=== PATIENT | male | born 1970 | race Caucasian/White ===

== ENCOUNTER 2019-02-15 08:50 | Inpatient (IN) | payer MEDICARE ==
[~2019-02-15] VITALS: Ht 170.2 cm; Wt 112.0 kg
[2019-02-15] VITALS (13 sets, daily range): BP systolic 115–168; BP diastolic 64–106
[~2019-02-15 08:50] MED LIST: ALLO300T PO; ALPR0.5T PO; ALPR1TAB2 PO; ALPR1TAB6 PO; ALPR2TAB5 PO; ARIP2TAB8 PO; ASPI-630 PO; ASPI325T8 PO; ATOR20TA PO; Aspirin PO; CLOP75TA PO; COLC0.6T34 PO; CYAN1TAB19 PO; CYAN500T17 PO; CYCL10TA2 PO; DEPLIN PO; DULO60CA6 PO; ERGO500027 PO; FLUO20CA8 PO; GABA-585 PO; GABA300C18 PO; IMIP50TA3 PO; INSU100V9 SQ; LEVO80CA PO; LIDO700A39 TD; LISI-338 PO; METF500T16 PO; METO25TA4 PO; METO50TA6 PO; MULT-208 PO; NALT1TAB PO; OLME1TAB35 PO; OXYC1TAB7 PO; Oxycodone Hcl/Acetaminophen PO; PANT40GR PO; PIOG1TAB PO; SACU1TAB PO; TRAZ-118 PO; VALS40TA2 PO; VALS80TA3 PO; VIT1CAPS7 PO
[2019-02-15] MEDS ORDERED: HEPARIN for ARTERIAL LINE 1,500 ML ONE (09:09)
[2019-02-15] MEDS ORDERED: LIDOCAINE 1% Multi-Dose 20 ML VIAL. ONE (09:09)
[2019-02-15] MEDS ORDERED: IODIXANOL 320 MG/ML 100 ML VIAL. ONE ×3 (09:09→10:48)
[2019-02-15 09:14] LABS: HEMATOCRIT 49.5 % (39.0-53.0); HEMOGLOBIN 16.6 g/dL (13.0-17.5); RED BLOOD COUNT 5.67 x10^6/uL (4.30-5.70); RED CELL DISTRIBUTION WIDTH 16.7 % (11.5-14.5); WHITE BLOOD COUNT 6.7 x10^3/uL (4.0-11.0)
[2019-02-15] MEDS ORDERED: fentaNYL PF VIAL 100 MCG/2 ML VIAL ONE (09:19)
[2019-02-15] MEDS ORDERED: MIDAZOLAM HCL/PF 2 MG/2 ML VIAL. ONE (09:20)
[2019-02-15] MEDS ORDERED: MULT1TAB52 PO (09:22)
[2019-02-15] MEDS ORDERED: HYDR12.575 PO (09:22)
[2019-02-15] MEDS ORDERED: DESV100T PO (09:22)
[2019-02-15] MEDS ORDERED: ARIP2TAB3 PO (09:22)
[2019-02-15] MEDS ORDERED: SACU1TAB7 PO (09:22)
[2019-02-15 09:24] LABS: CREATININE 1.2 mg/dL (0.7-1.3); GFR 64.4; POTASSIUM 3.8 mmol/L (3.5-5.1)
[2019-02-15 09:28] LABS: PROTHROMBIN TIME PATIENT 12.5 SEC (11.7-14.0)
[2019-02-15] MEDS ORDERED: MIDAZOLAM HCL/PF 2 MG/2 ML VIAL. IV ONE (09:30)
[2019-02-15] MEDS ORDERED: fentaNYL PF VIAL 100 MCG/2 ML VIAL IV ONE (09:30)
[2019-02-15] MEDS ORDERED: IODIXANOL 320 MG/ML 100 ML VIAL. IART ONE (09:30)
[2019-02-15] MEDS ORDERED: LIDOCAINE 1% Multi-Dose 20 ML VIAL. INJ ONE (09:30)
[2019-02-15] MEDS ORDERED: HEPARIN for IV BOLUS 10,000 UNIT/10 ML VIAL. ONE (10:45)
[2019-02-15] MEDS ORDERED: NITROGLYCERIN 200 MCG/2 ML SYRINGE FOR CATH/VASC LAB. IART ONE (11:00)
[2019-02-15] MEDS: HEPARIN for IV BOLUS 10,000 UNIT/10 ML VIAL. IV ONE (11:00)
[2019-02-15] MEDS ORDERED: IV NORMAL SALINE 1000ML BAG 1,000 ML IV ONE (11:00)
--- NOTE | 2019-02-15 12:32 | CARD ---
MR#: [id number] Date of Study: 02/15/2019 Ordering Physician: MICHAEL WHEELER, Referring Physician: MICHAEL WHEELER, Tech: Lori Altman RTR APPROVED REPORT Technologist: Lori Altman RTR Nurse: Michelle Georges RN Procedure(s) performed: Moderate Sedation time:81 MINUTES HISTORY The patient is a 48 year-old male with a history of : diabetes mellitus with treatment, coronary dionne ry disease, hypertension, dyslipidemia. INDICATION The indication(s) include : unstable angina . [facility] Clinical Frailty Scale [facility] Clinical Frailty Scale: Mildly Frail Heart Failure Heart Failure: Yes If Yes, Newly Diagnosed: No If Yes, HF Type: Diastolic If Yes, NYHA Class: Class II PROCEDURE NARRATIVE CLINICAL INFORMATION: 48-year-old male with prior history of five-vessel bypass in 2013 (SULLIVAN to LAD, SVG to OM1, SVG to OM 2, SVG to RCA, radial graft to the ramus), presented to the clinic with unstable angina despite exce llent blood pressure and heart rate control and beta greg therapy. He was then brought to the chemistry lab instructor for further evaluation. INFORMED CONSENT: After explaining the risks and benefits of the procedure and alternatives, informe d consent was obtained. ACCESS: The patient was brought electively to the cardiac catheterization lab in a fasting state. A timeout was performed confirming the patient's name, date of , procedure, and site of procedure. All [facility] personnel were wearing the appropriate protective equipment and radiation monitor devices. ( See nursing notes for medications administered). The right groin was sterilely prepped and draped in the usual fashion. The right groin was infiltrated with 10 mL of 2% lidocaine for subcutaneous anes thesia. A 6 F sheath was inserted into the right femoral artery without difficulty. CORONARY ANGIOGRAPHY: Right and left coronary angiography was performed using a JR4 and JL4 catheter. Left ventricular end diastolic pressure was obtained with a pigtail catheter and pullback was performed after left ventri culography. BYPASS ANGIOGRAPHY: SVG, Radial and SULLIVAN angiography was performed with JR4, MPA and KAYLEY cathters. FINDINGS: HEMODYNAMICS: AO: 120/80 LVEDP 15 mm Hg No gradient on LV to aortic pullback. LEFT VENTRICULOGRAM: EF 55% Anterobasal: Normal. Anterolateral: Normal Apical: Normal Diaphragmatic: Normal Posterobasal: Normal *No significant mitral regurgitation or aortic insufficiency. CORONARY ANGIOGRAPHY: LM is a moderate to large caliber vessel with normal angiographic appearance. LAD is a moderate caliber vessel with a proximal 80% stenosis. D1 is a small caliber vessel with mild luminal irregularities. LCx is a moderate caliber non-dominant vessel with a mid 100% occlusion. OM1 is a small caliber vessel with a proximal occlusion. OM2 is a moderate sized vessel with a mid occlusion. RCA is a large caliber dominant vessel with a proximal 100% occlusion. RPDA is a small caliber vessel with mild diffuse luminal irregularities. BYPASS ANGIOGRAPHY: SULLIVAN to LAD - widely patent without anastomotic stenosis. SVG to RCA - widely patent without anastomotic stenosis. SVG to OM1 - occluded, not seen on angiogram today and in 2016 SVG to OM2 - distal 80% anastomotic stenosis. Radial to ramus - widely patent without anastomotic stenosis. INTERVENTIONAL TECHNIQUE: Based upon the patient's present symptoms of unstable angina with exertion and review of prior angiog bayron where the saphenous vein graft to second obtuse marginal has had progressive disease with risk fo r occlusion and intervention was then performed. Heparin was used for an to regulation. The patient w as previously on aspirin and Plavix. Through a JR4 guide catheter a pro-water wire was advanced to th e distal second obtuse marginal. Next balloon angioplasty was performed with a 2.5 x 15 mm balloon an d subsequently the lesion was stented with a 3.0 x 26 mm resolute drug-eluting stent. Due to signific ant vein graft and port lions vessel mismatch the proximal half of the stent was then postdilated with a 4.5 mm noncompliant balloon at 22 chalino. Intracoronary nitroglycerin was administered. Final angiograph y demonstrated DILSHAD 3 flow. All catheter exchanges and advancements were performed over a guidewire. At case completion the righ t femoral sheath was removed and hemostasis was achieved with an Angioseal Device after limited femor al angiography confirmed adequate vessel size and anatomy. There were no acute complications. Syntax Score If Not STEMI or NSTE-ACS, Syntax Score: Intermediate DILSHAD Flow DILSHAD Flow (Pre-Intervention): DILSHAD-3 DILSHAD Flow (Post-Intervention): DILSHAD-3 Conclusion 1. Normal left sided filling pressures. 2. Normal LV systolic function. EF 55% 3. Severe port lions three vessel coronary disease. 4. 4/5 grafts patent 5. Successful PCI of the distal anastomotic stenosis of the SVG to OM2 with implantation of a 3.0/26 ROBERTO, post-dilated in the proximal segment with a 4.5 mm NC balloon at high pressure. Recommendations ASA 81mg daily Ticagrelor 90mg bid x 90 days Start Xarelto 2.5mg bid High dose statin therapy Cardiac rehab referral Signed by : Michael Wheeler, Electronically Approved : 02/15/2019 12:31:39
[2019-02-15] MEDS ORDERED: ATOR40TA59 PO (13:49)
[2019-02-15] MEDS ORDERED: CLOPIDOGREL BISULFATE 75 MG TABLET PO SCH (14:00)
[2019-02-15] MEDS: GABAPENTIN 100 MG CAPSULE. PO SCH (14:00)
[2019-02-15] MEDS ORDERED: ASPIRIN CHEWABLE 81 MG TABLET. PO SCH (14:00)
[2019-02-15] MEDS: MULTIVITAMIN with MINERAL TABLET. PO SCH (15:23)
[2019-02-15] MEDS: hydroCHLOROthiazide 12.5 MG CAPSULE PO SCH (15:23)
[2019-02-15] MEDS: ARIPiprazole 2 MG TABLET PO SCH (15:23)
[2019-02-15] MEDS: DESVENLAFAXINE 25 MG TAB.ER.24H PO SCH (15:24)
[2019-02-15] MEDS ORDERED: LIDOCAINE 2% 100 MG/5 ML SYRINGE. IV PRN (16:15)
[2019-02-15] MEDS ORDERED: ATROPINE 0.5 MG/5 ML DISP.SYRINGE. IV PRN (16:15)
[2019-02-15] MEDS ORDERED: AMIODARONE 150 MG in IV DEXTROSE 5% 100ML 100 ML IV PRN (16:15)
[2019-02-15] MEDS ORDERED: NITROGLYCERIN SUBLINGUAL 0.4 MG BOTTLE OF 25. SL PRN (16:15)
[2019-02-15] MEDS ORDERED: ACETAMINOPHEN 325 MG TABLET. PO PRN (16:15)
[2019-02-15] MEDS ORDERED: 0.9 % SODIUM CHLORIDE 10 ML DISP.SYRIN. IV PRN (16:15)
[2019-02-15] MEDS ORDERED: TICAGRELOR 90 MG TABLET. PO ONE (17:00)
[2019-02-15] MEDS: ALPRAZolam 1 MG TABLET PO SCH (20:12)
[2019-02-15] MEDS: METOPROLOL TART IMMED RELEASE 50 MG TABLET. PO SCH (20:13)
[2019-02-15] MEDS: SACUBITRIL/VALSARTAN 49/51MG TABLET. PO SCH (20:13)
[2019-02-15] MEDS ORDERED: traZODone 50 MG TABLET. PO SCH (21:00)
[2019-02-15] MEDS ORDERED: GABAPENTIN 300 MG CAPSULE. PO SCH (21:00)
--- NOTE | 2019-02-15 23:07 | NUR ---
Dr. Wheeler notified regarding patients BP 147/105, orders received.
[2019-02-15] MEDS ORDERED: hydrALAZINE 20 MG/ML VIAL. IVP PRN (23:30)
[2019-02-16] MEDS: fentaNYL PF VIAL 100 MCG/2 ML VIAL IV PRN ×2 (02:09→10:52)
[2019-02-16 02:14] VITALS: BP 132/78
[2019-02-16 06:15] LABS: CHOLESTEROL/HDL RATIO 9.7
[2019-02-16 07:28] VITALS: BP 120/68
[2019-02-16] MEDS ORDERED: ASPIRIN ENTERIC COATED 81 MG TABLET.DR. PO SCH (08:00)
[2019-02-16] MEDS: ARIPiprazole 2 MG TABLET PO SCH (08:39)
[2019-02-16] MEDS: SACUBITRIL/VALSARTAN 49/51MG TABLET. PO SCH (08:40)
[2019-02-16] MEDS: DESVENLAFAXINE 25 MG TAB.ER.24H PO SCH (08:40)
[2019-02-16] MEDS: GABAPENTIN 100 MG CAPSULE. PO SCH (08:40)
[2019-02-16] MEDS: MULTIVITAMIN with MINERAL TABLET. PO SCH (08:40)
[2019-02-16] MEDS: hydroCHLOROthiazide 12.5 MG CAPSULE PO SCH (08:40)
[2019-02-16] MEDS: ALPRAZolam 1 MG TABLET PO SCH (08:40)
[2019-02-16] MEDS: METOPROLOL TART IMMED RELEASE 50 MG TABLET. PO SCH (08:41)
[2019-02-16] MEDS ORDERED: BUPROPION HCL PO SCH (09:00)
[2019-02-16] MEDS ORDERED: TICAGRELOR 90 MG TABLET. PO SCH (09:00)
[2019-02-16] MEDS ORDERED: NALTREXONE HCL PO SCH (09:00)
[2019-02-16] MEDS ORDERED: RIVAROXABAN 10 MG TABLET. PO SCH (11:00)
[2019-02-16 11:03] VITALS: BP 109/77
[2019-02-16] MEDS ORDERED: METO50TA6 PO (11:56)
[2019-02-16] MEDS ORDERED: RIVA10TA PO (11:56)
[2019-02-16] MEDS ORDERED: ATOR40TA59 PO (11:56)
[2019-02-16] MEDS ORDERED: TICA90TA PO (11:56)
--- NOTE | 2019-02-16 11:59 | DISCH ---
DISCHARGE INSTRUCTIONS Condition on Discharge Condition on Discharge: Stable Activity After Discharge Activity Instructions for Disc: Activity as tolerated Bathing Instructions: No Tub Bath until see Lifting Instructions after Dis: No heavy lifting, Do not lift >10 pounds Exercise Instruction after Dis: Progress as tolerated Weight Bearing Status after Di: As tolerated Diet after Discharge Diet after Discharge: Cardiac, No Added Sugar Diet Texture: Regular Liquid Texture: Thin Liquid Swallowing Supervision: None needed Wound Incision Care Other wound/incision instructi: Keep cath site clean and dry. Checks after Discharge Checks after discharge: Check blood press - daily Contacting the DRPatricia after DC Call your doctor for: Concerns you may have Treatment/Equipment after DC Adaptive Equipment Issued: None KERLINE PIMENTEL APRN Feb 16, 2019 11:59
--- NOTE | 2019-02-19 07:36 | PDOC3 ---
Discharge Summary Visit Information Date of Admission: Feb 15, 2019 Date of Discharge: Feb 16, 2019 Admitting Diagnosis: CAD Final Diagnosis CAD Brief Hospital Course Allergies Allergies Coded Allergies Type Severity Reaction Last Updated Verified No Known Drug Allergies 06/07/14 No Brief Hospital Course Mr. Zhou is a 48 old male, with a history of CAD s/p CABG, who presented to our office with complaints of chest pain while shoveling snow. Due to due comorbidities and symptoms, patient was brought electively for left coronary angiogram for definitive evaluation. Catheterization revealed SULLIVAN to LAD widely patent without anastomotic stenosis, SVG to RCA widely patent without anastomotic stenosis, SVG to OM1 occluded, not seen on angiogram today and in 2016, SVG to OM2 with distal 80% anastomotic stenosis, and radial to ramus widely patent without anastomotic stenosis. Normal left sided filling pressures. Normal LV systolic function with an EF of 55%. Patient underwent successful PCI of the distal anastomotic stenosis of the SVG to OM2 with implantation of a 3.0/26 ROBERTO, post-dilated in the proximal segment with a 4.5 mm NC balloon at high pressure. Patient tolerate procedure well and was monitored overnight without an acute complications. Lungs CTA. Right groin arteriotomy site soft, clean, and dry. No ecchymosis or hematoma present. No significant events noted on telemetry, although patient was mildly bradycardic overnight. Metoprolol was lower to 50mg BID. Patient discharged on DAPT with ASA, Ticagrelor 90mg bid x 90 days, and Xarelto 2.5mg bid x 30 days. Discharge Information Condition at Discharge: Improved Follow Up: Weeks (4) Disposition/Orders: D/C to Home Scheduled Alprazolam (Alprazolam) 1 Mg Tablet, 1 TAB PO BID for anxiety, #60 (Reported) Entered as Reported by: LUCÍA ESCOBAR on 04/21/18 0831 Last Taken: Unknown Dose on 02/15/19 Last Action: Continued on 02/15/191348 by LORENA CASANOVA Aripiprazole (Abilify) 2 Mg Tablet, 2 MG PO DAILY for RX, (Reported) Entered as Reported by: VI VELARDE on 02/15/19 0922 Last Action: Converted on 02/15/191348 by LORENA CASANOVA Aspirin (Aspirin) 81 Mg Tab.chew, 1 TAB PO DAILY, #30 Ref 3 (Reported) Entered as Reported by: LORENA CASANOVA on 08/25/16 1511 Last Taken: Unknown Dose on 02/15/19 Last Action: Continued on 02/15/191348 by LORENA CASANOVA Atorvastatin Calcium (Atorvastatin Calcium) 40 Mg Tablet, 1 TAB PO QHS for lower cholest for 30 Days, #30 Ref 2 Prescribed by: KERLINE PIMENTEL APRN on 02/16/19 1156 Desvenlafaxine Succinate (Pristiq Er) 100 Mg Tab.er.24h, 1 TAB PO DAILY for RX, #30 Ref 2 (Reported) Entered as Reported by: VI VELARDE on 02/15/19921 Last Action: Converted on 02/15/191348 by LORENA CASANOVA Gabapentin (Gabapentin ) 100 Mg Capsule, 100 MG PO DAILY for pain, (Reported) Entered as Reported by: LUCÍA ESCOBAR on 04/21/18 0832 Last Action: Continued on 02/15/191348 by LORENA CASANOVA Gabapentin (Gabapentin ) 300 Mg Capsule, 300 MG PO HS, (Reported) Entered as Reported by: LUCÍA ESCOBAR on 04/21/18 0832 Last Action: Continued on 02/15/191348 by LORENA CASANOVA Hydrochlorothiazide (Hydrochlorothiazide Capsule ) 12.5 Mg Capsule, 12.5 MG PO DAILY for DIURETIC, Ref 0 (Reported) Entered as Reported by: VI VELARDE on 02/15/19921 Last Action: Continued on 02/15/191348 by LORENA CASANOVA Metformin Hcl (Metformin Hcl) 500 Mg Tablet, 500 MG PO BIDWMEALS for ANTI- DIABETIC, Ref 0 (Reported) Entered as Reported by: LUCÍA ESCOBAR on 04/21/1832 Metoprolol Tartrate (Metoprolol Tartrate) 50 Mg Tablet, 1 TAB PO BID for heart, blood pressure for 30 Days, #60 Ref 2 Prescribed by: KERLINE PIMENTEL APRN on 02/16/19 1156 Multivitamin (Multivitamins) 1 Each Tablet, 1 EACH PO DAILY for supplement, ( Reported) Entered as Reported by: VI VELARDE on 02/15/19921 Last Action: Converted on 02/15/191348 by LORENA CASANOVA Naltrexone HCl/Bupropion HCl (Contrave ER 8-90 mg Tablet) 1 Each Tablet.er, 2 EACH PO DAILY for RX, (Reported) Entered as Reported by: ARIELLE HARRIS on 08/21/16 1505 Last Action: Converted on 02/15/191348 by LORENA CASANOVA Rivaroxaban (Xarelto) 10 Mg Tablet, 2.5 MG PO BIDWMEALS for coronary artery disease for 30 Days, #15 Prescribed by: KERLINE PIMENTEL APRN on 02/16/19 1156 Sacubitril/Valsartan (Entresto 49 mg-51 mg Tablet) 1 Each Tablet, 1 EACH PO BID for cardiac, (Reported) Entered as Reported by: VI VELARDE on 02/15/19 0922 Last Taken: Unknown Dose on 02/15/19 Last Action: Converted on 02/15/191348 by LORENA CASANOVA Ticagrelor (Brilinta) 90 Mg Tablet, 90 MG PO BID for coronary artery disease for 30 Days, #60 Ref 2 Prescribed by: KERLINE PIMENTEL APRN on 02/16/19 1156 Trazodone Hcl (Trazodone Hcl) 50 Mg Tablet, 1 TAB PO QHS, #30 Ref 1 (Reported) Entered as Reported by: MAHENDRA ALMANZA on 08/21/16 1218 Last Action: Continued on 02/15/191348 by LORENA CASANOVA Discontinued Medications Clopidogrel Bisulfate (Clopidogrel) 75 Mg Tablet, 1 TAB PO DAILY, #90 Ref 1 ( Reported) Entered as Reported by: LORENA CASANOVA on 08/25/16 1511 Last Action: Continued on 02/15/191348 by LORENA CASANOVA Metoprolol Tartrate (Metoprolol Tartrate) 50 Mg Tablet, 2 TAB PO BID for cardiac , #60 Ref 5 (Reported) Entered as Reported by: ARIELLE HARRIS on 08/21/16 1503 Last Taken: Unknown Dose on 02/15/19 Last Action: Continued on 02/15/191348 by LORENA CASANOVA Patient Instructions Patient Instructions GENERAL INSTRUCTIONS: 1. Your dressing should be removed prior to leaving the hospital. 2. It is OK to shower the day after your procedure. 3. If you received stents, be sure to carry your stent information card with you in your wallet/purse at all times. 4. Call the office immediately at [phone] if you notice any fever or if there is redness, worsening tenderness/pain, increased bruising, or drainage from the puncture site. 5. Should you have bleeding from the site, lie down immediately & put pressure on the site. The pressure should be hard enough to stop the bleeding. Have the nearest person call 911. DO NOT try to drive to the ER with active bleeding. 6. If you notice a change in color, coolness to touch, or loss of feeling in the affected extremity, come to the emergency room. Please have someone drive you or call 911 if no one is available. DO NOT drive yourself. 7. If you normally take glucophage (metformin), please do not take this medicine for 48 hours following your procedure. 8. DO NOT STOP TAKING YOUR PLAVIX OR ASPIRIN UNLESS IT IS CLEARED BY A MEMORIAL DESIGNER OF YOUR ENVIRONMENTAL MAINTENANCE WORKER AT OUR OFFICE. 9. QUIT SMOKING: the [place] [employer], [place] [employer], & [place] [employer] have cessation resources available on their websites 10. Please have someone available to drive you home from the hospital as you may be limited by sedation medications given during the procedure. Femoral (Groin) access: 1. Do no lifting, pushing, pulling, bending, stooping, or recurrent stair climbing for 3 days following your procedure. 2. Once past the first 3 days, do not do any HEAVY exertion or lifting for one week following the procedure. No gym workouts, running, lifting greater than a gallon of milk, etc 3. Do not submerge in bath or pool for one week. OK to drive 3 days following your procedure, but if going long distance, do not go alone & take hourly breaks to get out of car and walk around. Radial Artery (Wrist) access: 1. No pushing, pulling, lifting, typing, or anything that requires repetitive use/movement of the affected wrist for 3 days following your procedure. 2. OK to drive the day following your procedure. (This is because of effects of sedating medications.) Call the office at [phone] for any questions or concerns. KERLINE PIMENTEL APRN Feb 19, 2019 07:36
== END 2019-02-16 13:00 | disposition home or self-care (01) | DRG 247 ==
LOC: CCL 08:50 → 2 SOUTH 10:45
PROVIDERS: ADMIT Internal Medicine Cardiovascular Disease; ATTEND Internal Medicine Cardiovascular Disease
PROC: 027034Z Dilation of Coronary Artery, One Artery with Drug-eluting Intraluminal Device, Percutaneous Approach (ICD-10-PCS; principal; 2019-02-15)
PROC: 4A023N7 Measurement of Cardiac Sampling and Pressure, Left Heart, Percutaneous Approach (ICD-10-PCS; 2019-02-15)
PROC: B2111ZZ Fluoroscopy of Multiple Coronary Arteries using Low Osmolar Contrast (ICD-10-PCS; 2019-02-15)
PROC: B2151ZZ Fluoroscopy of Left Heart using Low Osmolar Contrast (ICD-10-PCS; 2019-02-15)
PROC: B2131ZZ Fluoroscopy of Multiple Coronary Artery Bypass Grafts using Low Osmolar Contrast (ICD-10-PCS; 2019-02-15)
PROC: B2181ZZ Fluoroscopy of Left Internal Mammary Bypass Graft using Low Osmolar Contrast (ICD-10-PCS; 2019-02-15)
PROC: B41F1ZZ Fluoroscopy of Right Lower Extremity Arteries using Low Osmolar Contrast (ICD-10-PCS; 2019-02-15)
DX: T82.858A Stenosis of other vascular prosthetic devices, implants and grafts, initial encounter (principal); I25.110 Atherosclerotic heart disease of native coronary artery with unstable angina pectoris; E11.9 Type 2 diabetes mellitus without complications; I10 Essential (primary) hypertension; E78.5 Hyperlipidemia, unspecified; Y83.8 Other surgical procedures as the cause of abnormal reaction of the patient, or of later complication, without mention of misadventure at the time of the procedure; Y92.89 Other specified places as the place of occurrence of the external cause; Z95.1 Presence of aortocoronary bypass graft; I25.5 Ischemic cardiomyopathy
CPT/HCPCS: 36415; 80048; 80061; 85027; 85347; 85610; 90471; 90756; 92938; 93459; 93567; 99152; 99153; C1725; C1760; C1769; C1874; C1887; C1892; G0269; J1644; J2250; J3010; J3490; J7030; Q9967; C1771; Q2035

== ENCOUNTER 2019-04-28 14:00 | Emergency (ER) | payer MEDICARE ==
[~2019-04-28] VITALS: Ht 172.7 cm; Wt 108.9 kg
[~2019-04-28 14:00] MED LIST changes: +ARIP2TAB3 PO; +ATOR40TA59 PO; +DESV100T PO; +HYDR12.575 PO; +MULT1TAB52 PO; +RIVA10TA PO; +SACU1TAB7 PO; +TICA90TA PO
--- NOTE | 2019-04-28 14:53 | RAD ---
CT HEAD INDICATION: Numbness COMPARISON: None Available. Exposure: One or more of the following individualized dose reduction techniques were utilized for this examination: 1. Automated exposure control 2. Adjustment of the mA and/or kV according to patient size 3. Use of iterative reconstruction technique TECHNIQUE: 5 mm contiguous axial images were obtained from the skull base to the vertex in both bone and soft tissue algorithm. FINDINGS: Mild bilateral periventricular white matter hypodensities likely chronic small vessel ischemic disease. No evidence of acute intracranial hemorrhage. No extra-axial fluid collections. No mass effect or midline shift. Ventricular size is appropriate. Basal cisterns are patent. No fractures identified.Herron-white differentiation is preserved.Globes and orbits are within normal limits. Paranasal sinuses and mastoid air cells are clear. IMPRESSION: No acute intracranial findings. Electronically signed by: Nabeel Martin MD (04/28/2019 2:50 PM) [facility]
--- NOTE | 2019-04-28 14:58 | RAD ---
Chest, PA and Lateral: Technique: PA and lateral views of the chest were obtained. History: Shortness of breath. Comparison: 04/21/2018. Findings: Low lung volumes and technique accentuates heart size and pulmonary vascularity. Mild bibasilar lung airspace opacity likely atelectasis or infiltrates. Moderate degenerative changes thoracic spine. IMPRESSION: Mild bibasilar lung airspace opacities likely atelectasis or infiltrates. Electronically signed by: Nabeel Martin MD (04/28/2019 2:55 PM) [facility]
[2019-04-28 15:02] LABS: BASO % 1 % (0-3); EOS # 0.1 x10^3/uL (0.0-0.7); EOS % 2 % (0-3); HEMATOCRIT 50.8 % (39.0-53.0); HEMOGLOBIN 17.4 g/dL (13.0-17.5); LYMPH # 2.6 x10^3/uL (1.0-4.8); LYMPH % 30 % (24-48); MEAN CORPUSCULAR HEMOGLOBIN 30 pg (25-35); MEAN CORPUSCULAR HGB CONC 34 g/dL (31-37); MEAN CORPUSCULAR VOLUME 88 fL (79-100); MONO # 0.6 x10^3/uL (0.0-1.1); MONO % 7 % (0-9); NEUT # 5.4 x10^3uL (1.8-7.7); NEUT % 62 % (31-73); PLATELET COUNT 244 x10^3/uL (140-400); RED BLOOD COUNT 5.76 x10^6/uL (4.30-5.70); RED CELL DISTRIBUTION WIDTH 16.3 % (11.5-14.5); WHITE BLOOD COUNT 8.8 x10^3/uL (4.0-11.0)
[2019-04-28 15:11] LABS: PROTHROMBIN TIME PATIENT 13.2 SEC (11.7-14.0)
[2019-04-28 15:17] LABS: CALCIUM 9.4 mg/dL (8.5-10.1); CREATININE 1.4 mg/dL (0.7-1.3); GFR 53.9; POTASSIUM 3.6 mmol/L (3.5-5.1)
[2019-04-28 15:21] LABS: ALBUMIN/GLOBULIN RATIO 1.1 (1.0-1.7); MAGNESIUM 1.8 mg/dL (1.8-2.4); TOTAL BILIRUBIN 0.6 mg/dL (0.2-1.0); TOTAL PROTEIN 7.5 g/dL (6.4-8.2)
--- NOTE | 2019-04-28 15:25 | PHYS DOC ---
Past Medical History Past Medical History: Anxiety, CAD, Depression, Diabetes-Type II, GERD, High Cholesterol, Hypertension, [place] Past Surgical History: Cholecystectomy, Coronary Bypass Surgery, Knee Replacement Alcohol Use: Occasionally Drug Use: None Adult General Chief Complaint Chief Complaint: SHORTNESS OF BREATH [facility] HPI Patient is a 48 year old male who presents with complaining of intermittent episodes of chest pain and generalized numbness. Patient states he had stent placement month and half ago and since then has episodes of shortness of breath not related to activity or position that last for a few seconds and happens several times a day. Patient states his clinical program director is aware of the problem that is related to his body adjustment of the cardiac condition. Patient also complaining of generalized numbness from head to toe in bilateral upper and lower extremity and face and trunk for the last 2 days as a constant problem without focal weakness. Patient complaining of mild headache without blurred or double vision, nausea and vomiting, fever and chills, chest pain. Patient complaining of retro-orbital headache and rated his pain 5/10. Patient states he had episode of numbness for a short time previously but for the last 2 days his numbness is constant. Patient states he has strong history of anxiety. Review of Systems Review of Systems Constitutional: Denies fever or chills [] Eyes: Denies change in visual acuity, redness, or eye pain [] HENT: Denies nasal congestion or sore throat [] Respiratory: Denies cough, reports shortness of breath [] Cardiovascular: No additional information not addressed in HPI [] GI: Denies abdominal pain, nausea, vomiting, bloody stools or diarrhea [] : Denies dysuria or hematuria [] Musculoskeletal: Denies back pain or joint pain [] Integument: Denies rash or skin lesions [] Neurologic: Denies headache, focal weakness, reports sensory changes [] Endocrine: Denies polyuria or polydipsia [] All other systems were reviewed and found to be within normal limits, except as documented in this note. Current Medications Current Medications Current Medications Medications (Trade) Dose Ordered Sig/Omar Start Time Stop Time Status Last Admin Dose Admin Lorazepam (Ativan Inj) 1 mg 1X ONCE 04/28/19 15:00 04/28/19 15:01 DC 04/28/19 15:05 1 MG Allergies Allergies Allergies Coded Allergies Type Severity Reaction Last Updated Verified No Known Drug Allergies 06/07/14 No Physical Exam Physical Exam Constitutional: Well developed, well nourished, mild distress, non-toxic appearance. [] HENT: Normocephalic, atraumatic. Eyes: PERRLA, EOMI, conjunctiva normal, no discharge. [] Neck: Normal range of motion, no tenderness, supple, no stridor. [] Cardiovascular:Heart rate regular rhythm, no murmur [] Lungs & Thorax: Bilateral breath sounds clear to auscultation [] Abdomen: Bowel sounds normal, soft, no tenderness, no masses, no pulsatile masses. [] Skin: Warm, dry, no erythema, no rash. [] Back: No tenderness, no CVA tenderness. [] Extremities: No tenderness, no cyanosis, no clubbing, ROM intact, no edema. [] Neurologic: Alert and oriented X 3, normal motor function, normal sensory function without paresthesia, no focal deficits noted. [] Psychologic: Affect anxious, judgement normal, mood normal. [] Current Patient Data Vital Signs Vital Signs Date Time Temp Pulse Resp B/P (MAP) Pulse Ox O2 Delivery O2 Flow Rate FiO2 04/28/19 14:05 98.0 79 20 145/96 (112) 98 Room Air 98.0 Lab Values Laboratory Tests Test 04/28/19 14:25 White Blood Count 8.8 x10^3/uL (4.0-11.0) Red Blood Count 5.76 x10^6/uL (4.30-5.70) H Hemoglobin 17.4 g/dL (13.0-17.5) Hematocrit 50.8 % (39.0-53.0) Mean Corpuscular Volume 88 fL (79-100) Mean Corpuscular Hemoglobin 30 pg (25-35) Mean Corpuscular Hemoglobin Concent 34 g/dL (31-37) Red Cell Distribution Width 16.3 % (11.5-14.5) H Platelet Count 244 x10^3/uL (140-400) Neutrophils (%) (Auto) 62 % (31-73) Lymphocytes (%) (Auto) 30 % (24-48) Monocytes (%) (Auto) 7 % (0-9) Eosinophils (%) (Auto) 2 % (0-3) Basophils (%) (Auto) 1 % (0-3) Neutrophils # (Auto) 5.4 x10^3uL (1.8-7.7) Lymphocytes # (Auto) 2.6 x10^3/uL (1.0-4.8) Monocytes # (Auto) 0.6 x10^3/uL (0.0-1.1) Eosinophils # (Auto) 0.1 x10^3/uL (0.0-0.7) Basophils # (Auto) 0.0 x10^3/uL (0.0-0.2) Prothrombin Time 13.2 SEC (11.7-14.0) Prothrombin Time INR 1.0 (0.8-1.1) Sodium Level 138 mmol/L (136-145) Potassium Level 3.6 mmol/L (3.5-5.1) Chloride Level 99 mmol/L (98-107) Carbon Dioxide Level 28 mmol/L (21-32) Anion Gap 11 (6-14) Blood Urea Nitrogen 16 mg/dL (8-26) Creatinine 1.4 mg/dL (0.7-1.3) H Estimated GFR (Cockcroft-Gault) 53.9 BUN/Creatinine Ratio 11 (6-20) Glucose Level 302 mg/dL (70-99) H Calcium Level 9.4 mg/dL (8.5-10.1) Magnesium Level 1.8 mg/dL (1.8-2.4) Total Bilirubin 0.6 mg/dL (0.2-1.0) Aspartate Amino Transferase (AST) 26 U/L (15-37) Alanine Aminotransferase (ALT) 50 U/L (16-63) Alkaline Phosphatase 99 U/L (46-116) Creatine Kinase 153 U/L (39-308) Troponin I Quantitative < 0.017 ng/mL (0.000-0.055) PF-Zly-E-Type Natriuretic Peptide 137 pg/mL (0-124) H Total Protein 7.5 g/dL (6.4-8.2) Albumin 4.0 g/dL (3.4-5.0) Albumin/Globulin Ratio 1.1 (1.0-1.7) Laboratory Tests 04/28/19 14:25 Laboratory Tests 04/28/19 14:25 EKG EKG EKG interpreted by me. EKG at 1412 showed normal sinus rhythm at rate of 61, incomplete right bundle-branch block, normal. RN QT intervals, poor R-wave progress in anteroseptal leads. Radiology/Procedures Radiology/Procedures [facility] [address] [place] [address] IMAGING REPORT Signed PATIENT: KAMRON HARDY ACCOUNT: [id number] : 1970 LOCATION: ER AGE: 48 SEX: M EXAM STATUS: PRE ER ORD. PHYSICIAN: SARINA PATEL MD REASON: numbness PROCEDURE: CT HEAD WO CONTRAST CT HEAD INDICATION: Numbness COMPARISON: None Available. Exposure: One or more of the following individualized dose reduction techniques were utilized for this examination: 1. Automated exposure control 2. Adjustment of the mA and/or kV according to patient size 3. Use of iterative reconstruction technique TECHNIQUE: 5 mm contiguous axial images were obtained from the skull base to the vertex in both bone and soft tissue algorithm. FINDINGS: Mild bilateral periventricular white matter hypodensities likely chronic small vessel ischemic disease. No evidence of acute intracranial hemorrhage. No extra-axial fluid collections. No mass effect or midline shift. Ventricular size is appropriate. Basal cisterns are patent. No fractures identified.Herron-white differentiation is preserved.Globes and orbits are within normal limits. Paranasal sinuses and mastoid air cells are clear. IMPRESSION: No acute intracranial findings. Electronically signed by: Nabeel Martin MD (04/28/2019 2:50 PM) [facility] [address] [place] [address] IMAGING REPORT Signed PATIENT: KAMRON HARDY ACCOUNT: [id number] : 1970 LOCATION: ER AGE: 48 SEX: M EXAM STATUS: PRE ER ORD. PHYSICIAN: SARINA PATEL MD REASON: shortness of breath PROCEDURE: CHEST PA & LATERAL Chest, PA and Lateral: Technique: PA and lateral views of the chest were obtained. History: Shortness of breath. Comparison: 04/21/2018. Findings: Low lung volumes and technique accentuates heart size and pulmonary vascularity. Mild bibasilar lung airspace opacity likely atelectasis or infiltrates. Moderate degenerative changes thoracic spine. IMPRESSION: Mild bibasilar lung airspace opacities likely atelectasis or infiltrates. Electronically signed by: Nabeel Martin MD (04/28/2019 2:55 PM) [facility] DICTATED and SIGNED BY: NABEEL MARTIN MD DATE: 04/28/19 7260 Course & Med Decision Making Course & Med Decision Making Pertinent Labs and Imaging studies reviewed. (See chart for details) Evaluation of patient in ER showed 48-year-old male patient with multiple medical problems presented with generalized numbness and intermittent episodes of shortness of breath. Patient was anxious in ER and had NIHSS of 0. Labs was unremarkable except for hyperglycemia and mild elevation of creatinine. CT head and chest x-ray did not show acute finding. Patient felt better. Plan discharge patient home to diagnose of and uncontrolled diabetes mellitus and instruction to follow up with her primary care physician and clinical program director. Dragon Disclaimer Dragon Disclaimer This electronic medical record was generated, in whole or in part, using a voice recognition dictation system. Departure Departure Impression: Primary Impression: Panic attack Additional Impressions: Hyperglycemia Shortness of breath Uncontrolled diabetes mellitus Renal insufficiency Disposition: HOME, SELF-CARE (at 1559) Condition: IMPROVED Referrals: JUSTINO GARCIA MD (PCP) Patient Instructions: 1800 Calorie Diet for Diabetes Meal Planning, Anxiety and Panic Attacks, Diabetes Meal Planning Guide, Hyperglycemia, Shortness of Breath Additional Instructions: Continue home medications Follow-up with your primary care physician in 3-5 days Return to ER if not getting better Problem Qualifiers Additional Impressions: Uncontrolled diabetes mellitus Diabetes mellitus type: other specified (including AIXA) Glycemic state: with hyperglycemia Qualified Codes: E13.65 - Other specified diabetes mellitus with hyperglycemia SARINA PATEL MD Apr 28, 2019 15:25
[2019-04-28 16:22] VITALS: BP 143/72
--- NOTE | 2019-04-29 11:28 | EKG ---
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
== END 2019-04-28 16:29 | disposition home or self-care (01) ==
LOC: ER 14:00
DX: F41.0 Panic disorder [episodic paroxysmal anxiety] (principal); E11.65 Type 2 diabetes mellitus with hyperglycemia; R06.02 Shortness of breath; N28.9 Disorder of kidney and ureter, unspecified; F32.9 Major depressive disorder, single episode, unspecified; E78.00 Pure hypercholesterolemia, unspecified; K21.9 Gastro-esophageal reflux disease without esophagitis; I10 Essential (primary) hypertension; I25.2 Old myocardial infarction; Z90.49 Acquired absence of other specified parts of digestive tract; Z95.1 Presence of aortocoronary bypass graft
CPT/HCPCS: 36415; 70450; 71046; 80053; 82550; 83735; 83880; 84484; 85025; 85610; 93005; 96374; 99285; J2060

== ENCOUNTER 2019-08-07 08:41 | Inpatient (IN) | payer MEDICARE, OTHER ==
[~2019-08-07] VITALS: Ht 170.2 cm; Wt 118.1 kg
[~2019-08-07 08:41] MED LIST changes: +LIDO700A21 TD; -LIDO700A39 TD; -PIOG1TAB PO; +PIOG1TAB7 PO
[2019-08-07 09:11] LABS: BASO # 0.1 x10^3/uL (0.0-0.2); BASO % 2 % (0-3); EOS # 0.3 x10^3/uL (0.0-0.7); EOS % 4 % (0-3); HEMATOCRIT 47.2 % (39.0-53.0); HEMOGLOBIN 16.2 g/dL (13.0-17.5); LYMPH # 2.4 x10^3/uL (1.0-4.8); LYMPH % 36 % (24-48); MEAN CORPUSCULAR HEMOGLOBIN 30 pg (25-35); MEAN CORPUSCULAR HGB CONC 34 g/dL (31-37); MEAN CORPUSCULAR VOLUME 88 fL (79-100); MONO # 0.3 x10^3/uL (0.0-1.1); MONO % 5 % (0-9); NEUT # 3.6 x10^3/uL (1.8-7.7); NEUT % 54 % (31-73); PLATELET COUNT 205 x10^3/uL (140-400); RED BLOOD COUNT 5.39 x10^6/uL (4.30-5.70); RED CELL DISTRIBUTION WIDTH 14.7 % (11.5-14.5); WHITE BLOOD COUNT 6.6 x10^3/uL (4.0-11.0)
--- NOTE | 2019-08-07 09:22 | PHYS DOC ---
Past Medical History Past Medical History: Anxiety, CAD, Depression, Diabetes-Type II, GERD, High Cholesterol, Hypertension, [place] Past Surgical History: Cholecystectomy, Coronary Bypass Surgery, Knee Replacement Additional Past Surgical Histo: STENT PLACEMENT Alcohol Use: Occasionally Drug Use: None Adult General Chief Complaint Chief Complaint: CHEST PAIN HPI HPI Patient is a 48 year old male who presents with at 0030 and having life sided chest pressure with pain that went into the left shoulder down to the left wrist and states this feels like a throbbing pounding feeling. Patient states he has slight shortness of air with this. Patient currently rates his pain 7 out of 10. Review of Systems Review of Systems Constitutional: Denies fever or chills [] Respiratory: Denies cough. shortness of breath [] Cardiovascular: Left chest pressure with radiation to left shoulder down to left wrist All other systems were reviewed and found to be within normal limits, except as documented in this note. Current Medications Current Medications Current Medications Medications (Trade) Dose Ordered Sig/Omar Start Time Stop Time Status Last Admin Dose Admin Aspirin (Brenda Aspirin) 325 mg 1X ONCE 08/07/19 09:45 08/07/19 09:46 DC 08/07/19 09:53 325 MG Nitroglycerin (Nitrostat) 0.4 mg PRN Q5MIN PRN 08/07/19 09:30 Allergies Allergies Allergies Coded Allergies Type Severity Reaction Last Updated Verified No Known Drug Allergies 06/07/14 No Physical Exam Physical Exam Constitutional: Well developed, well nourished, no acute distress, non-toxic appearance. [] Eyes: PERRLA, EOMI, conjunctiva normal, no discharge. [] Cardiovascular: Sinus rhythm with pronounced lateral T wave inversion . Heart rate regular rhythm, no murmur [] Lungs & Thorax: Bilateral breath sounds clear to auscultation [] Skin: Warm, dry, no erythema, no rash. [] Back: No tenderness, no CVA tenderness. [] Extremities: No tenderness, no cyanosis, no clubbing, ROM intact, no edema. [] Neurologic: Alert and oriented X 3, normal motor function, normal sensory funct ion, no focal deficits noted. [] Psychologic: Affect normal, judgement normal, mood normal. [] Current Patient Data Vital Signs Vital Signs Date Time Temp Pulse Resp B/P (MAP) Pulse Ox O2 Delivery O2 Flow Rate FiO2 08/07/19 08:45 97.6 83 16 121/76 (91) 94 Room Air 97.6 Lab Values Laboratory Tests Test 08/07/19 09:00 White Blood Count 6.6 x10^3/uL (4.0-11.0) Red Blood Count 5.39 x10^6/uL (4.30-5.70) Hemoglobin 16.2 g/dL (13.0-17.5) Hematocrit 47.2 % (39.0-53.0) Mean Corpuscular Volume 88 fL (79-100) Mean Corpuscular Hemoglobin 30 pg (25-35) Mean Corpuscular Hemoglobin Concent 34 g/dL (31-37) Red Cell Distribution Width 14.7 % (11.5-14.5) H Platelet Count 205 x10^3/uL (140-400) Neutrophils (%) (Auto) 54 % (31-73) Lymphocytes (%) (Auto) 36 % (24-48) Monocytes (%) (Auto) 5 % (0-9) Eosinophils (%) (Auto) 4 % (0-3) H Basophils (%) (Auto) 2 % (0-3) Neutrophils # (Auto) 3.6 x10^3/uL (1.8-7.7) Lymphocytes # (Auto) 2.4 x10^3/uL (1.0-4.8) Monocytes # (Auto) 0.3 x10^3/uL (0.0-1.1) Eosinophils # (Auto) 0.3 x10^3/uL (0.0-0.7) Basophils # (Auto) 0.1 x10^3/uL (0.0-0.2) Sodium Level 136 mmol/L (136-145) Potassium Level 3.7 mmol/L (3.5-5.1) Chloride Level 97 mmol/L (98-107) L Carbon Dioxide Level 27 mmol/L (21-32) Anion Gap 12 (6-14) Blood Urea Nitrogen 17 mg/dL (8-26) Creatinine 1.4 mg/dL (0.7-1.3) H Estimated GFR (Cockcroft-Gault) 53.9 BUN/Creatinine Ratio 12 (6-20) Glucose Level 392 mg/dL (70-99) H Calcium Level 9.4 mg/dL (8.5-10.1) Total Bilirubin 0.5 mg/dL (0.2-1.0) Aspartate Amino Transferase (AST) 20 U/L (15-37) Alanine Aminotransferase (ALT) 35 U/L (16-63) Alkaline Phosphatase 104 U/L (46-116) Troponin I Quantitative < 0.017 ng/mL (0.000-0.055) Total Protein 7.5 g/dL (6.4-8.2) Albumin 3.5 g/dL (3.4-5.0) Albumin/Globulin Ratio 0.9 (1.0-1.7) L Laboratory Tests 08/07/19 09:00 Laboratory Tests 08/07/19 09:00 EKG EKG Sinus Rhythm, Pronounced T wave inversion, no STEMI[] Interpretation Time: [address] Villeda Radiology/Procedures Radiology/Procedures [] Impressions: [facility] [address] [place], [place] [id number] IMAGING REPORT Signed PATIENT: KAMRON HARDY ACCOUNT: [id number] : 1970 LOCATION: ER AGE: 48 SEX: M EXAM STATUS: REG ER ORD. PHYSICIAN: RAFAEL WILL APRN REASON: chest pain PROCEDURE: CHEST PA & LATERAL CHEST PA LATERAL History: Chest pain Comparison: April 28, 2019 Findings: No consolidation or pleural effusion. Borderline enlarged heart size. Prior median sternotomy. Impression: 1. No acute cardiopulmonary process. Electronically signed by: Ernst Michael DO (08/07/2019 9:31 AM) [facility] DICTATED and SIGNED BY: ERNST MICHAEL DO DATE: 08/07/19930 Course & Med Decision Making Course & Med Decision Making Patient is a 48 year old male who presents with at 0030 and having life sided chest pressure with pain that went into the left shoulder down to the left wrist and states this feels like a throbbing pounding feeling. Patient states he has slight shortness of air with this. Patient currently rates his pain 7 out of 10. Vital signs within normal limits. Patient states he took an 81 mg aspirin this morning. Patient states he did not eat anything that he took a drink of water 8 :00 this morning. Lungs are clear to all station all lobes. Vital signs are within normal limits. Skin is pink warm and dry. No extremity edema. EKG shows sinus rhythm with pronounced lateral T wave inversion. Skin is pink warm and dry. PERRLA. Patient denies headache, nausea, vomiting or diarrhea, fevers, dizziness, numbness or tingling, weaknesses, visual changes. Patient has a history of 6 coronary bypasses stent placed back in March. Patient also has hypertension, diabetes, cholecystectomy and obesity. Patient states he does not smoke. Patient states he sees Dr. Wheeler for cardiology and primary care is Dr. Rios. Patient is aware that he will be admitted. Troponin is negative and chest x-ray shows no acute findings. Patient admitted by hospitalist. Dragon Disclaimer Dragon Disclaimer This electronic medical record was generated, in whole or in part, using a voice recognition dictation system. The HEART Score for CP Pts HEART Score for Chest Pain: HEART Score for Chest Pain Response (Comments) Value History Moderately Suspicious 1 ECG Nonspecific Repolarizatio 1 Age >45 - < 65 1 Risk Factors >3 Risk Factors or Hx CAD 2 Troponin < Normal Limit 0 Total 5 Risk Factors: Risk Factors: DM, Current or recent (<one month) smoker, HTN, HLP, family his tory of CAD, obesity. Risk Scores: Score 0 - 3: 2.5% MACE over next 6 weeks - Discharge Home Score 4 - 6: 20.3% MACE over next 6 weeks - Admit for Clinical Observation Score 7 - 10: 72.7% MACE over next 6 weeks - Early Invasive Strategies Departure Departure Impression: Primary Impression: Chest pain Disposition: ADMITTED INPATIENT Admitting Physician: TOBIAS Condition: STABLE Referrals: JUSTINO RIOS MD (PCP) Problem Qualifiers Primary Impression: Chest pain Chest pain type: unspecified Qualified Codes: R07.9 - Chest pain, unspecified RAFAEL WILL RETANNER Aug 07, 2019 09:22
[2019-08-07 09:28] LABS: CALCIUM 9.4 mg/dL (8.5-10.1); CREATININE 1.4 mg/dL (0.7-1.3); GFR 53.9; POTASSIUM 3.7 mmol/L (3.5-5.1)
[2019-08-07 09:33] LABS: ALBUMIN 3.5 g/dL (3.4-5.0); ALBUMIN/GLOBULIN RATIO 0.9 (1.0-1.7); TOTAL BILIRUBIN 0.5 mg/dL (0.2-1.0); TOTAL PROTEIN 7.5 g/dL (6.4-8.2)
--- NOTE | 2019-08-07 09:34 | RAD ---
CHEST PA LATERAL History: Chest pain Comparison: April 28, 2019 Findings: No consolidation or pleural effusion. Borderline enlarged heart size. Prior median sternotomy. Impression: 1. No acute cardiopulmonary process. Electronically signed by: Ernst Michael DO (08/07/2019 9:31 AM) [facility]
[2019-08-07] MEDS ORDERED: ASPIRIN 325 MG TABLET PO ONE (09:45)
[2019-08-07] MEDS ORDERED: IV NORMAL SALINE 1000ML BAG 1,000 ML IV ONE (10:15)
[2019-08-07] MEDS ORDERED: ACETAMINOPHEN 325 MG TABLET. PO PRN (11:00)
[2019-08-07] MEDS ORDERED: NITROGLYCERIN SUBLINGUAL 0.4 MG BOTTLE OF 25. SL PRN (11:00)
[2019-08-07] MEDS ORDERED: fentaNYL PF VIAL 100 MCG/2 ML VIAL IV PRN (11:00)
[2019-08-07] MEDS ORDERED: ONDANSETRON PF 4 MG/2 ML VIAL. IV PRN (11:00)
--- NOTE | 2019-08-07 11:08 | EKG ---
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
[2019-08-07] MEDS: NITROGLYCERIN SUBLINGUAL 0.4 MG BOTTLE OF 25. SL PRN ×2 (11:32→11:40)
--- NOTE | 2019-08-07 11:56 | HP ---
ADMIT DATE: 08/07/2019 CHIEF COMPLAINT: Chest pain. HISTORY OF PRESENT ILLNESS: The patient is a pleasant 48-year-old male who has known coronary artery disease, in fact he has had 5-vessel bypass and a stent. Basically, he has got throbbing chest pain, feels like it is as hard. I discussed the case with ER physician. We are going to admit the patient and consult Cardiology. PAST MEDICAL HISTORY: CAD, anxiety, depression, coronary artery bypass surgery, cardiac stents, hyperlipidemia, GERD, hypertension, myocardial infarction, cholecystectomy, knee replacement. ALLERGIES: None. FAMILY HISTORY: Coronary artery disease. SOCIAL HISTORY: He does not drink, smoke or take drugs. He is on disability. He is . MEDICATIONS: Reviewed, please refer to the MRAD. REVIEW OF SYSTEMS: GENERAL: No history of weight change, weakness or fevers. SKIN: No bruising, hair changes or rashes. EYES: No blurred, double or loss of vision. NOSE AND THROAT: No history of nosebleeds, hoarseness or sore throat. HEART: No history of palpitations, or shortness of breath on exertion. He complains of chest pain. LUNGS: Denies cough, hemoptysis, wheezing or shortness of breath. GASTROINTESTINAL: Denies changes in appetite, nausea, vomiting, diarrhea or constipation. GENITOURINARY: No history of frequency, urgency, hesitancy or nocturia. NEUROLOGIC: Denies history of numbness, tingling, tremor or weakness. PSYCHIATRIC: No history of panic, anxiety or depression. ENDOCRINE: No history of heat or cold intolerance, polyuria or polydipsia. EXTREMITIES: Denies muscle weakness, joint pain, pain on walking or stiffness. PHYSICAL EXAMINATION: VITALS: Within normal limits and are stable. GENERAL: No apparent distress. Alert and oriented. HEENT: Head is normocephalic, atraumatic, pupils were equally round and reactive to light and accommodation. NECK: Supple, no JVD, no thyromegaly was noted. LUNGS: Clear to auscultation in all lung farah without rhonchi or wheezing. HEART: RRR, S1, S2 present. Peripheral pulses intact, no obvious murmurs were noted. ABDOMEN: Soft, nontender. Positive bowel sounds no organomegaly, normal bowel sounds. EXTREMITIES: Without any cyanosis, clubbing, or edema. Pedal pulses intact, Homans sign is negative. NEUROLOGIC: Normal speech, normal tone. A & O x3, moves all extremities, no obvious focal deficits. PSYCHIATRIC: Normal affect, normal mood. Stable. SKIN: No ulcerations or rashes, good skin turgor, no jaundice. VASCULAR: Good capillary refill, neurovascular bundle appears to be intact. LABORATORY DATA: Troponin is 0. Hematology is normal. Creatinine 1.4. ASSESSMENT AND PLAN: Chest pain with known coronary artery disease. The patient is being admitted. We will check serial enzymes, serial EKGs, cardiac monitoring. Consult Cardiology. Home meds, DVT prophylaxis, p.r.n. nitro. PROGNOSIS: Guarded. HILLARY GIBSON DO DR: PRETTY/yovana JOB#: [id number] / [id number]
[2019-08-07 12:10] VITALS: BP 114/63
--- NOTE | 2019-08-07 13:06 | PDOC2 ---
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 Reports that he has been having daily heartburn and has been taking maalox and it helps. Last night he started having this left chest sharp discomfort and was SOA. He tried to go to bed and he just wakes up with the discomfort with some SOA. No diaphoresis but felt that his left arm was having nagging discomfort as well and some heaviness. Denies any palpitations. No prior exertional CP nor SALAZAR. Last night he was nt having any heartburn. Verbalized that this is the same symptoms he had prior to his [facility] 01/2019. He has been compliant with his medications including low dose xarelto with ASA. He was supposed to be on plavix but per clarification he did not get started on plavix. He does not check his BG and his BG has been uncontrolled. Reports that his anxiety and depression is controlled PAST MEDICAL HISTORY Cardiovascular: CAD, CHF, HTN, Hyperlipidemia Pulmonary: No pertinent hx CENTRAL NERVOUS SYSTEM: Other (No pertinent history) Psych: Anxiety, Depression Musculoskeletal: Osteoarthritis Rheumatologic: No pertinent hx ENT: Sincusitis Renal/: Chronic renal insuff (?) Endocrine: Diabetes (2) Dermatology: No pertinent hx PAST SURGICAL HISTORY Past Surgical History: Arthroscopy (left knee), Cholecystectomy, CABG (SULLIVAN to LAD, SVG to OM3, SVG to RCA, radial artery to OM2 and OM1; recent PCI 01/2019) FAMILY HISTORY Family History noncontributory SOCIAL HISTORY Smoke: No ALCOHOL: none Drugs: None Lives: with Family CURRENT MEDICATIONS CURRENT MEDICATIONS Current Medications Medications (Trade) Dose Ordered Sig/Omar Route PRN Reason Start Time Stop Time Status Last Admin Dose Admin Aspirin (Brenda Aspirin) 325 mg 1X ONCE PO 08/07/19 09:45 08/07/19 09:46 DC 08/07/19 09:53 Nitroglycerin (Nitrostat) 0.4 mg PRN Q5MIN PRN SL CHEST PAIN 08/07/19 09:30 08/07/19 11:40 Sodium Chloride 1,000 ml @ 1,000 mls/hr 1X ONCE IV 08/07/19 10:15 08/07/19 11:14 DC 08/07/19 10:22 ALLERGIES ALLERGIES: Coded Allergies: No Known Drug Allergies (Unverified , 06/07/14) ROS Review of System 14 point ROS evaluated with pertinent positives noted per HPI PHYSICAL EXAM General: Alert, Oriented X3, Cooperative, No acute distress HEENT: Atraumatic, Mucous membr. moist/pink Lungs: Clear to auscultation, Normal air movement Heart: Regular rate (SR), Normal S1, Normal S2, No murmurs Abdomen: Soft, No tenderness Extremities: No cyanosis, No edema Skin: No breakdown, No significant lesion Neuro: Normal speech, Sensation intact Psych/Mental Status: Mental status NL, Mood NL MUSCULOSKELETAL: Osteoarthritic changes both hands VITALS/I&O VITALS/I&O: Vital Signs Date Time Temp Pulse Resp B/P (MAP) Pulse Ox O2 Delivery O2 Flow Rate FiO2 08/07/19 11:40 87 110/56 08/07/19 08:45 97.6 16 94 Room Air 97.6 LABS Lab: Laboratory Tests Test 08/07/19 09:00 White Blood Count 6.6 x10^3/uL (4.0-11.0) Red Blood Count 5.39 x10^6/uL (4.30-5.70) Hemoglobin 16.2 g/dL (13.0-17.5) Hematocrit 47.2 % (39.0-53.0) Mean Corpuscular Volume 88 fL (79-100) Mean Corpuscular Hemoglobin 30 pg (25-35) Mean Corpuscular Hemoglobin Concent 34 g/dL (31-37) Red Cell Distribution Width 14.7 % (11.5-14.5) H Platelet Count 205 x10^3/uL (140-400) Neutrophils (%) (Auto) 54 % (31-73) Lymphocytes (%) (Auto) 36 % (24-48) Monocytes (%) (Auto) 5 % (0-9) Eosinophils (%) (Auto) 4 % (0-3) H Basophils (%) (Auto) 2 % (0-3) Neutrophils # (Auto) 3.6 x10^3/uL (1.8-7.7) Lymphocytes # (Auto) 2.4 x10^3/uL (1.0-4.8) Monocytes # (Auto) 0.3 x10^3/uL (0.0-1.1) Eosinophils # (Auto) 0.3 x10^3/uL (0.0-0.7) Basophils # (Auto) 0.1 x10^3/uL (0.0-0.2) Sodium Level 136 mmol/L (136-145) Potassium Level 3.7 mmol/L (3.5-5.1) Chloride Level 97 mmol/L (98-107) L Carbon Dioxide Level 27 mmol/L (21-32) Anion Gap 12 (6-14) Blood Urea Nitrogen 17 mg/dL (8-26) Creatinine 1.4 mg/dL (0.7-1.3) H Estimated GFR (Cockcroft-Gault) 53.9 BUN/Creatinine Ratio 12 (6-20) Glucose Level 392 mg/dL (70-99) H Calcium Level 9.4 mg/dL (8.5-10.1) Total Bilirubin 0.5 mg/dL (0.2-1.0) Aspartate Amino Transferase (AST) 20 U/L (15-37) Alanine Aminotransferase (ALT) 35 U/L (16-63) Alkaline Phosphatase 104 U/L (46-116) Troponin I Quantitative < 0.017 ng/mL (0.000-0.055) Total Protein 7.5 g/dL (6.4-8.2) Albumin 3.5 g/dL (3.4-5.0) Albumin/Globulin Ratio 0.9 (1.0-1.7) L Laboratory Tests 08/07/19 09:00 Laboratory Tests 08/07/19 09:00 HEART CATH HEART CATH Conclusion 1. Normal left sided filling pressures. 2. Normal LV systolic function. EF 55% 3. Severe [place] three vessel coronary disease. 4. 4/5 grafts patent 5. Successful PCI of the distal anastomotic stenosis of the SVG to OM2 with implantation of a 3.0/26 ROBERTO, post-dilated in the proximal segment with a 4.5 mm NC balloon at high pressure. Recommendations ASA 81mg daily Ticagrelor 90mg bid x 90 days Start Xarelto 2.5mg bid High dose statin therapy Cardiac rehab referral DATE: 02/15/19 1231 ASSESSMENT/PLAN ASSESSMENT/PLAN 1. Chest pain: initial trop nml, EKG SR without acute changes by comparison. Mixed features but same symptoms from his last PCI 2. CAD: past CABG x5 with recent PCI/ROBERTO to SVG to OM2 3. HTN: BP marginally low 4. HLP 5. DM2: BG uncontrolled 6. Hx of depression and panic attacks: reported controlled per pt. 7. Obesity 8. GERD exacerbation Recommendations 1. Trend troponin. high pretest probability recurrence in regards to his CAD. 2. TTE. Check lipids. and TSH, A1C 3. Will stop xarelto for now. Start on ASA/plavix. Start on PPI 4. Hold BP meds for now including entresto, will reeval tomorrow. 5. C tomorrow. x1 lovenox. today. risks and benefits discussed and agreeable to proceed. 6. Continue with secondary prevention SPENCER BURCH MD 08/07/19 7407: CARDIAC CONSULT ASSESSMENT/PLAN ASSESSMENT/PLAN Patient seen and examined. Agree with MEDICARE INTERVIEWER's assessment and plan. Since he stopped taking his Plavix and his symptoms are similar to chest pain prior to his previous angioplasty, agree with proceeding with cardiac catheterization Risks and benefits were explained and he is agreeable 2-D echo showed normal LV systolic function Thank you for your consultation TERRY IRWIN APRN Aug 07, 2019 13:06 SPENCER BURCH MD Aug 07, 2019 16:47
[2019-08-07] MEDS ORDERED: PANTOPRAZOLE 40 MG TABLET.DR. PO ONE (13:45)
[2019-08-07 13:48] LABS: CHOLESTEROL 190 mg/dL (0-200); CHOLESTEROL/HDL RATIO 6.1; HDLC 31 mg/dL (40-60); TRIGLYCERIDES 888 mg/dL (0-150); VLDLC 178 mg/dL (0-40)
[2019-08-07] MEDS ORDERED: METF850T8 PO (13:54)
[2019-08-07] MEDS ORDERED: IV DEXTROSE 5% 250 ML BAG. IV PRN (14:00)
[2019-08-07] MEDS ORDERED: DEXTROSE 50% 25 GM / 50ML DISP.SYRIN. IV PRN (14:00)
[2019-08-07] MEDS ORDERED: PERFLUTREN PROTEIN-A MICROSPHR 0.22 MG/ML 3 ML VIAL. IV ONE (14:30)
[2019-08-07] MEDS ORDERED: INSULIN LISPRO 300 UNITS/3 ML VIAL. SQ SCH (14:30)
--- NOTE | 2019-08-07 14:43 | CARD ---
MR#: [id number] Date of Study: 08/07/2019 Ordering Physician: TERRY IRWIN, Referring Physician: TERRY IRWIN, Tech: Xiao Alexander RDCS APPROVED REPORT EXAM: Two-dimensional and M-mode echocardiogram with Doppler, color Doppler with contrast. Other Information Quality : Technically LimitedHR: 80bpm Rhythm : NSRTechnically limited study due to body habitus and CABG. INDICATION Chest Pain Echo Enhancing Agent Indication: Endocardial border delineation Agent/Amount Used: Optison 1mL Surgery/Intervention CABG: Date: 2013 2D DIMENSIONS RVDd3.3 (2.9-3.5cm)Left Atrium(2D)4.1 (1.6-4.0cm) IVSd1.4 (0.7-1.1cm)Aortic Root(2D)3.6 (2.0-3.7cm) LVDd3.9 (3.9-5.9cm)LVOT Diameter2.5 (1.8-2.4cm) PWd1.3 (0.7-1.1cm)LVDs2.8 (2.5-4.0cm) FS (%) 27.6 %SV36.2 ml LVEF(%)54.2 (>50%) M-Mode DIMENSIONS Left Atrium(MM)4.38 (2.5-4.0cm)Aortic Root3.71 (2.2-3.7cm) Aortic Valve AoV Peak Ranulfo.116.1cm/sAoV VTI21.4cm AO Peak GR.5.4mmHgLVOT Peak Ranulfo.106.5cm/s AO Mean GR.3mmHgAVA (VMAX)4.55cm2 JOAQUINA (VTI)4.00cm2 Mitral Valve MV E Pdwllzoh67.6cm/sMV DECEL [id number] MV A Qonxsudn43.6cm/sE/A Ratio1.0 Pulmonary Valve PV Peak Ablifeug698.4cm/s Tricuspid Valve TR P. Pfuqykwe512we/sRAP BUDXAQNH0ugKt TR Peak Gr.48faMtAMPH38ieDe LEFT VENTRICLE The left ventricle is normal size. There is mild to moderate concentric left ventricular hypertrophy. The left ventricular systolic function is normal. The Ejection Fraction is 55-60%. There is normal L V segmental wall motion. Transmitral Doppler flow pattern is Grade I-abnormal relaxation pattern. RIGHT VENTRICLE The right ventricle is normal size. There is normal right ventricular wall thickness. The right ventr icular systolic function is normal. ATRIA The left atrium is mildly dilated. The right atrium size is normal. The interatrial septum is intact with no evidence for an atrial septal defect or patent foramen ovale as noted on 2-D or Doppler imagi ng. AORTIC VALVE The aortic valve is normal in structure and function. The aortic valve is trileaflet. Doppler and Col or Flow revealed no significant aortic regurgitation. There is no significant aortic valvular stenosi s. There is no aortic valvular vegetation. MITRAL VALVE The mitral valve is normal in structure and function. There is no evidence of mitral valve prolapse. There is no mitral valve stenosis. Doppler and Color Flow revealed no mitral valve regurgitation note d. TRICUSPID VALVE The tricuspid valve is normal in structure and function. Doppler and Color Flow revealed trace tricus pid regurgitation. The PA pressure was estimated at 25 mmHg. There is no tricuspid valve prolapse or vegetation. There is no tricuspid valve stenosis. PULMONIC VALVE The pulmonic valve is not well visualized. GREAT VESSELS The aortic root is normal in size. The ascending aorta is normal in size. The IVC was not visualized. PERICARDIAL EFFUSION There is no evidence of significant pericardial effusion. Critical Notification Critical Value: No <Conclusion> Technically difficult study. Optison echo contrast used. The left ventricular systolic function is normal. The Ejection Fraction is 55-60%. There is normal LV segmental wall motion. Transmitral Doppler flow pattern is Grade I-abnormal relaxation pattern. Doppler and Color Flow revealed trace tricuspid regurgitation. The PA pressure was estimated at 25 mmHg. There is no evidence of significant pericardial effusion. Signed by : Boyd Yo, Electronically Approved : 08/07/2019 14:43:20
[2019-08-07 15:00] VITALS: BP 115/76
--- NOTE | 2019-08-07 15:00 | NUR ---
Patient arrived to room 261 from ED via wheelchair, patient alert and oriented x4, rates pain 4/10 after 2 nitros, at bedside. Call light within reach, will continue to monitor.
[2019-08-07] MEDS ORDERED: INSULIN LISPRO 300 UNITS/3 ML VIAL. SQ ONE (15:30)
[2019-08-07] MEDS ORDERED: METO100T7 PO (15:32)
[2019-08-07] MEDS ORDERED: ARIP2TAB3 PO (15:32)
[2019-08-07] MEDS ORDERED: RIVAROXABAN 10 MG TABLET. PO SCH (17:00)
[2019-08-07] MEDS ORDERED: metFORMIN 850 MG TABLET PO SCH (17:00)
[2019-08-07] MEDS ORDERED: ALPR1TAB6 PO (17:21)
[2019-08-07] MEDS ORDERED: ALPR1TAB PO ×4 (17:21→17:48)
[2019-08-07] MEDS: CLOPIDOGREL BISULFATE 75 MG TABLET PO SCH (17:28)
[2019-08-07 17:32] LABS: BILIRUBIN,URINE NEGATIVE (NEG); CLARITY,URINE CLEAR; COLOR,URINE YELLOW; NITRITE,URINE NEGATIVE (NEG); PH,URINE 5.5; PROTEIN,URINE NEGATIVE (NEG-TRACE); UROBILINOGEN,URINE 0.2 mg/dL (0.2 mg/dL)
[2019-08-07] MEDS: INSULIN LISPRO 300 UNITS/3 ML VIAL. SQ SCH (17:34)
[2019-08-07 17:42] LABS: BACTERIA,URINE 0 /HPF (0-FEW); RBC,URINE 0 /HPF (0-2); WBC,URINE 0 /HPF (0-4)
[2019-08-07 17:44] LABS: BARBITURATES NEG (NEG); BENZODIAZEPINES POS (NEG); CANNABINOIDS NEG (NEG); COCAINE NEG (NEG); METHADONE NEG (NEG); OPIATES NEG (NEG); PHENCYCLIDINE NEG (NEG)
[2019-08-07] MEDS ORDERED: ALPR0.5T6 PO (17:48)
[2019-08-07 17:59] LABS: AMPHETAMINE/METHAMPHETAMINE NEG (NEG)
[2019-08-07] MEDS: ALPRAZolam 1 MG TABLET PO SCH ×2 (18:00→21:04)
[2019-08-07] MEDS ORDERED: ALPRAZolam 0.5 MG TABLET PO PRN (18:00)
[2019-08-07 19:39] VITALS: BP 142/88
[2019-08-07] MEDS ORDERED: GABAPENTIN 300 MG CAPSULE. PO SCH (21:00)
[2019-08-07] MEDS ORDERED: ATORVASTATIN CALCIUM 40 MG TABLET. PO SCH ×2 (21:00)
[2019-08-07] MEDS ORDERED: traZODone 50 MG TABLET. PO SCH (21:00)
[2019-08-07 23:03] VITALS: BP 103/71
[2019-08-08] VITALS (14 sets, daily range): BP systolic 92–137; BP diastolic 44–91
[2019-08-08 02:13] LABS: HEMOGLOBIN A1C 11.3 % (4.8-5.6)
[2019-08-08] MEDS ORDERED: PANTOPRAZOLE 40 MG TABLET.DR. PO SCH (07:30)
[2019-08-08] MEDS ORDERED: IODIXANOL 320 MG/ML 100 ML VIAL. ONE ×2 (07:42→11:56)
[2019-08-08] MEDS ORDERED: LIDOCAINE 1% Multi-Dose 20 ML VIAL. ONE (07:42)
[2019-08-08 08:41] LABS: PROTHROMBIN TIME PATIENT 13.4 SEC (11.7-14.0)
[2019-08-08] MEDS: ALPRAZolam 1 MG TABLET PO SCH ×2 (08:58→13:33)
[2019-08-08] MEDS ORDERED: MULTIVITAMIN with MINERAL TABLET. PO SCH (09:00)
[2019-08-08] MEDS ORDERED: GABAPENTIN 100 MG CAPSULE. PO SCH (09:00)
[2019-08-08] MEDS ORDERED: DESVENLAFAXINE 25 MG TAB.ER.24H PO SCH (09:00)
[2019-08-08] MEDS ORDERED: ALPRAZOLAM PO SCH (09:00)
[2019-08-08] MEDS ORDERED: ASPIRIN CHEWABLE 81 MG TABLET. PO SCH (09:00)
[2019-08-08] MEDS: INSULIN LISPRO 300 UNITS/3 ML VIAL. SQ SCH ×2 (09:01→13:50)
[2019-08-08] MEDS ORDERED: VERAPAMIL 5 MG/2 ML VIAL. ONE (11:03)
[2019-08-08] MEDS ORDERED: MIDAZOLAM HCL/PF 5 MG/5 ML VIAL. ONE (11:03)
[2019-08-08] MEDS ORDERED: HEPARIN for IV BOLUS 10,000 UNIT/10 ML VIAL. ONE (11:03)
[2019-08-08] MEDS ORDERED: fentaNYL PF VIAL 100 MCG/2 ML VIAL ONE (11:03)
[2019-08-08] MEDS ORDERED: NITROGLYCERIN 200 MCG/2 ML SYRINGE FOR CATH/VASC LAB. ONE (11:04)
[2019-08-08] MEDS ORDERED: fentaNYL PF VIAL 100 MCG/2 ML VIAL IV ONE (11:30)
[2019-08-08] MEDS ORDERED: CONTRAST GIVEN. MC PRN (11:30)
[2019-08-08] MEDS ORDERED: IODIXANOL 320 MG/ML 100 ML VIAL. IART ONE (11:30)
[2019-08-08] MEDS ORDERED: MIDAZOLAM HCL/PF 5 MG/5 ML VIAL. IV ONE (11:30)
[2019-08-08] MEDS ORDERED: LIDOCAINE 1% Multi-Dose 20 ML VIAL. INJ ONE (11:30)
--- NOTE | 2019-08-08 11:51 | NUR ---
SS following for discharge planning. SS reviewed pt chart. Pt is from home with spouse and is currently on room air. No discharge needs noted at this time. SS will continue to follow for discharge planning.
[2019-08-08] MEDS ORDERED: 0.9 % SODIUM CHLORIDE 10 ML DISP.SYRIN. IV PRN (13:00)
[2019-08-08] MEDS ORDERED: IV 1/2 NORMAL SALINE 1,000 ML IV SCH (13:00)
[2019-08-08] MEDS ORDERED: NITROGLYCERIN SUBLINGUAL 0.4 MG BOTTLE OF 25. SL PRN (13:00)
--- NOTE | 2019-08-08 13:00 | PDOC ---
MODERATE SEDATION ASSESSMENT RISKS/ALTERNATIVES Risks/Alternatives Risks and alternatives of this type of sedation and procedure discussed with: RISK/ALTERNATIVES: Patient H & P ON CHART H & P H & P on chart and reviewed for co-morbid conditions and appropriate labs. H&P ON CHART: Yes STATUS PREG STATUS ASSESSED: N/A MEDS/ALLERGIES REVIEWED Meds/Allergies Reviewed Medications and Allergies including time and route of recently administered narcotics and sedatives. MEDS/ALLERGIES REVIEWED: Yes ASA RATING ASA RATING: III AIRWAY ASSESSMENT Airway Assessment Airway patency, oral function limitations, presence of caps, crowns, dentures, partials, and ability to extend neck assessed. AIRWAY ASSESSMENT: No MALLAMPATI SCORE MALLAMPATI SCORE: II PRE-SEDATION ASSESSMENT PRE-SEDATION ASSESSMENT: Yes SPENCER BURCH MD Aug 08, 2019 13:00
--- NOTE | 2019-08-08 13:15 | PDOC ---
[facility] PROGRESS NOTE Chief Complaint Chief Complaint Chest Pain CAD anxiety depression coronary artery bypass surgery cardiac stents hyperlipidemia GERD hypertension myocardial infarction cholecystectomy knee replacement History of Present Illness History of Present Illness 08/08/19 Pt seen and examined at beside; pt's parents present today Pt exhibits NAD Heart cath scheduled today Vitals/I&O Vitals/I&O: Vital Signs Date Time Temp Pulse Resp B/P (MAP) Pulse Ox O2 Delivery O2 Flow Rate FiO2 08/08/19 12:15 18 95 Nasal Cannula 2.0 08/08/19 12:06 79 08/08/19 10:43 97.6 128/77 (94) 97.6 I & O 08/07/19 08/07/19 08/08/19 15:00 23:00 07:00 Intake Total 1000 ml 560 ml 200 ml Output Total 500 ml Balance 1000 ml 60 ml 200 ml Physical Exam General: Alert, Oriented X3, Cooperative, No acute distress Heart: Regular rate (SR), Normal S1, Normal S2, No murmurs Lungs: Clear Abdomen: Soft, No tenderness Extremities: No cyanosis, No edema Skin: No breakdown, No significant lesion Labs Labs: Laboratory Tests Test 08/07/19 13:41 08/07/19 14:01 08/07/19 17:23 08/07/19 20:55 Glucose (Fingerstick) 433 mg/dL (70-99) 350 mg/dL (70-99) Troponin I Quantitative < 0.017 ng/mL (0.000-0.055) < 0.017 ng/mL (0.000-0.055) Urine Collection Type Unknown Urine Color Yellow Urine Clarity Clear Urine pH 5.5 Urine Specific [place] >=1.030 Urine Protein Negative mg/dL (NEG-TRACE) Urine Glucose (UA) >=1000 mg/dL (NEG) Urine Ketones (Stick) Negative mg/dL (NEG) Urine Blood Negative (NEG) Urine Nitrite Negative (NEG) Urine Bilirubin Negative (NEG) Urine Urobilinogen Dipstick 0.2 mg/dL (0.2 mg/dL) Urine Leukocyte Esterase Negative (NEG) Urine RBC 0 /HPF (0-2) Urine WBC 0 /HPF (0-4) Urine Bacteria 0 /HPF (0-FEW) Urine Opiates Screen Neg (NEG) Urine Methadone Screen Neg (NEG) Urine Barbiturates Neg (NEG) Urine Phencyclidine Screen Neg (NEG) Urine Amphetamine/Methamphetamine Neg (NEG) Urine Benzodiazepines Screen Pos (NEG) Urine Cocaine Screen Neg (NEG) Urine Cannabinoids Screen Neg (NEG) Urine Ethyl Alcohol Neg (NEG) Test 08/07/19 21:00 08/08/19 07:25 08/08/19 08:20 08/08/19 12:26 Glucose (Fingerstick) 197 mg/dL (70-99) 231 mg/dL (70-99) 226 mg/dL (70-99) Prothrombin Time 13.4 SEC (11.7-14.0) Prothromb Time International Ratio 1.1 (0.8-1.1) Review of Systems Review of Systems: Denies MCDANIELS Denies vision change Assessment and Plan Assessmemt and Plan Problems Medical Problems: (1) CAD (coronary artery disease) Status: Acute (2) Chest pain Status: Acute (3) DM2 (diabetes mellitus, type 2) Status: Chronic (4) HTN (hypertension) Status: Chronic Chest Pain CAD DM2 anxiety depression coronary artery bypass surgery cardiac stents hyperlipidemia GERD hypertension myocardial infarction cholecystectomy knee replacement Plan Cardiac cath this a.m. Cardiac monitoring Serial enzymes Serial ekg DVT prophylaxis PT/OT Full Code Appreciate subspecialty input Comment Review of Relevant I have reviewed the following items agata (where applicable) has been applied. Medications: Current Medications Medications (Trade) Dose Ordered Sig/Omar Route PRN Reason Start Time Stop Time Status Last Admin Dose Admin Aspirin (Children'S Aspirin) 81 mg DAILY PO 08/08/19 09:00 08/08/19 09:01 Clopidogrel Bisulfate (Plavix) 75 mg DAILYWBKFT PO 08/07/19 14:00 08/07/19 17:34 Atorvastatin Calcium (Lipitor) 80 mg QHS PO 08/07/19 21:00 08/07/19 21:05 Pantoprazole Sodium (Protonix) 40 mg 1X ONCE PO 08/07/19 13:45 08/07/19 13:46 DC 08/07/19 14:58 Insulin Human Lispro (HumaLOG) 0-7 UNITS TIDWMEALS SQ 08/07/19 17:00 08/08/19 09:01 Perflutren Protein Type A Microsphe (Optison) 0.66 mg 1X ONCE IV 08/07/19 14:30 08/07/19 14:31 DC 08/07/19 14:34 Insulin Human Lispro (HumaLOG) 20 units 1X ONCE SQ 08/07/19 15:30 08/07/19 15:31 DC 08/07/19 15:35 Gabapentin (Neurontin) 300 mg HS PO 08/07/19 21:00 08/07/19 21:05 Metformin HCl (Glucophage) 850 mg BIDWMEALS PO 08/07/19 17:00 08/08/19 08:08 DC 08/07/19 17:34 Trazodone HCl (Desyrel) 50 mg QHS PO 08/07/19 21:00 08/07/19 21:05 Enoxaparin Sodium (Lovenox 120mg Syringe) 120 mg 1X ONCE SQ 08/07/19 16:45 08/07/19 16:46 DC 08/07/19 17:34 Alprazolam (Xanax) 1 mg TID PO 08/07/19 18:00 08/08/19 09:01 Heparin Sodium/ Sodium Chloride (HEPARIN for ARTERIAL LINE FLUSH) 1,000 unit 1X ONCE IART 08/08/19 11:30 08/08/19 11:31 DC 08/08/19 12:14 Midazolam HCl (Versed) 5 mg 1X ONCE IV 08/08/19 11:30 08/08/19 11:31 DC 08/08/19 12:15 Fentanyl Citrate (Fentanyl 2ml Vial) 100 mcg 1X ONCE IV 08/08/19 11:30 08/08/19 11:31 DC 08/08/19 12:15 Iodixanol (Visipaque 320) 100 ml 1X ONCE IART 08/08/19 11:30 08/08/19 11:31 DC 08/08/19 12:15 Lidocaine HCl (Lidocaine 1% 20ml Vial) 20 ml 1X ONCE INJ 08/08/19 11:30 08/08/19 11:31 DC 08/08/19 12:15 HILLARY GIBSON III DO Aug 08, 2019 13:15
[2019-08-08] MEDS: CLOPIDOGREL BISULFATE 75 MG TABLET PO SCH (13:33)
[2019-08-08] MEDS ORDERED: INSU100V31 SQ (14:35)
[2019-08-08] MEDS ORDERED: INSU100I13 SQ (14:35)
--- NOTE | 2019-08-08 15:58 | CARD ---
MR#: [id number] Date of Study: 08/08/2019 Ordering Physician: TERRY IRWIN, Referring Physician: TERRY IRWIN, Tech: AURA NIXON RTR APPROVED REPORT Technologist: AURA NIXON RTR Nurse: Cathleen Steinberg R.N. Procedure(s) performed: Left heart catheterization, selective coronary angiography and selective sally ography of the bypass grafts MODERATE SEDATION TIME: 47 MINUTES FLUORO TIME: 7.8 MIN DOSE:82.1 GYCM2 CONTRAST:111 INDICATION The indication(s) include : unstable angina . CSHA Clinical Frailty Scale CS Clinical Frailty Scale: Managing Well Heart Failure Heart Failure: No PROCEDURE NARRATIVE After explaining the risks, benefits and alternative options, informed consent was obtained from ariel ent. Patient was brought to the cardiac [facility] and his right groin was prepped and draped in the us ual fashion. 20 mL of 2% lidocaine was infiltrated into the skin and subcutaneous drain is tissues fo r local anesthesia. Arterial access was obtained in the right common femoral artery and a 6 [place] sh eath was inserted. 6 [place] JL4 and 6 [place] JR4 catheters were used to perform selective angiography of the left and right coronary arteries. 6 [place] JR4 catheter was then used to perform selective an giography of the saphenous vein graft to the second obtuse marginal branch, radial artery graft to ra mus intermedius artery and also left internal mammary artery graft to the left anterior descending ar juan. 6 [place] multipurpose catheter was used to perform selective angiography of the saphenous vein graft to the right coronary artery. LVEDP and transaortic gradients were measured. Left ventriculogr aphy was not performed since 2-D echo showed LVEF 55-60%. Patient tolerated the procedure well. Hemos tasis was achieved using Angio-Seal. There were no immediate complications. FINDINGS 1. Hemodynamics: Left ventricle end-diastolic pressure 19 mmHg. No pullback gradient across the aor tic valve. 2. Coronary and bypass graft angiography: a. The left main coronary artery did not show any significant stenosis. b. The left anterior descending artery showed 90% proximal segment stenosis and 70% mid segment sten osis. The diagonal branch showed minimal luminal irregularities without any significant stenosis. c. The left circumflex artery showed 100% chronic total occlusion in the midsegment. d. The right coronary artery showed 100% chronic total occlusion in the proximal segment. e. The left internal mammary artery graft to the left anterior descending artery was widely patent. Distal to the anastomosis the [place] left anterior descending artery did not show any significant mike nosis. f. The radial artery graft to the ramus intermedius artery was patent. g. The saphenous vein graft to the first obtuse marginal branch was known to be occluded from prior cardiac catheterization. h. The saphenous vein graft to the second obtuse marginal branch was widely patent. The recently khris kaylee stent in the proximal segment of the obtuse marginal branch was patent. i. Saphenous vein graft to the right coronary artery was widely patent. Conclusion Coronary artery disease s/p CABG with patent SULLIVAN to LAD, patent radial artery graft to ramus interme dius, patent saphenous vein graft to the second obtuse marginal branch with widely patent recently pl aced stent in the OM, known occlusion of SVG to OM1 from prior cardiac catheterization and patent sap henous vein graft to the right coronary artery. No lesions needing intervention were noted. Recommendations Medical Therapy Signed by : Boyd Yo, Electronically Approved : 08/08/2019 15:57:52
[2019-08-08] MEDS ORDERED: ICOS1CAP PO (16:50)
[2019-08-08] MEDS ORDERED: CLOP75TA PO (16:52)
--- NOTE | 2019-08-08 18:45 | NUR ---
Discharge Note: KAMRON HARDY [address] Discharge instructions and discharge home medications reviewed with Patient and and a copy given. Extensive teaching regarding diet, insulin, and heart failure were explained to patient and his . They had no questions and agreed with plan of care. Prescriptions called into [facility] pharmacy per pt request. All questions have been answered and understanding verbalized.
--- NOTE | 2019-08-09 19:10 | DS ---
DATE OF DISCHARGE: 08/08/2019 ADMISSION DIAGNOSIS: Chest pain with known coronary artery disease. DISCHARGE DIAGNOSIS: Atypical chest pain (he got a cardiac catheterization, it was clean, but he does have previous bypass surgery and a previous stent). HOSPITAL COURSE: The patient is a pleasant 48-year-old male, who presented with chest pain. Since he has known coronary artery disease, we admitted him and we consulted Cardiology. He was taken to the catheterization laboratory. To our surprise, it was actually pretty good, it was pretty clean, his vessels were open, and he was doing well. I saw him yesterday and examined him. Heart sounds were normal. Lungs were clear. We discharged to home. DISPOSITION: Home. ACTIVITY: As tolerated. DIET: Cardiac. MEDICATIONS: Please see the MRAD. TOTAL TIME: 33 minutes. HILLARY GIBSON DO DR: PRETTY/yovana JOB#: [id number] / [id number]
== END 2019-08-08 18:00 | disposition home or self-care (01) | DRG 287 ==
LOC: ER 08:41 → 2 SOUTH 10:26
PROVIDERS: ADMIT Internal Medicine; ATTEND Internal Medicine
PROC: 4A023N7 Measurement of Cardiac Sampling and Pressure, Left Heart, Percutaneous Approach (ICD-10-PCS; principal; 2019-08-08)
PROC: B2111ZZ Fluoroscopy of Multiple Coronary Arteries using Low Osmolar Contrast (ICD-10-PCS; 2019-08-08)
PROC: B2181ZZ Fluoroscopy of Left Internal Mammary Bypass Graft using Low Osmolar Contrast (ICD-10-PCS; 2019-08-08)
PROC: B2131ZZ Fluoroscopy of Multiple Coronary Artery Bypass Grafts using Low Osmolar Contrast (ICD-10-PCS; 2019-08-08)
DX: R07.89 Other chest pain (principal); Z68.41 Body mass index [BMI] 40.0-44.9, adult; I11.0 Hypertensive heart disease with heart failure; I50.9 Heart failure, unspecified; E11.9 Type 2 diabetes mellitus without complications; E66.9 Obesity, unspecified; I25.10 Atherosclerotic heart disease of native coronary artery without angina pectoris; E78.00 Pure hypercholesterolemia, unspecified; I25.82 Chronic total occlusion of coronary artery; E78.5 Hyperlipidemia, unspecified; K21.9 Gastro-esophageal reflux disease without esophagitis; F41.9 Anxiety disorder, unspecified; F32.9 Major depressive disorder, single episode, unspecified; Z96.659 Presence of unspecified artificial knee joint; Z82.49 Family history of ischemic heart disease and other diseases of the circulatory system; I25.2 Old myocardial infarction; Z95.1 Presence of aortocoronary bypass graft; Z95.5 Presence of coronary angioplasty implant and graft; Z79.899 Other long term (current) drug therapy; Z90.49 Acquired absence of other specified parts of digestive tract
CPT/HCPCS: 93459; C8929; G0269; 36415; 71046; 80053; 80061; 80307; 81001; 82550; 82962; 83036; 84443; 84484; 85025; 85610; 93005; 99152; 99153; C1760; C1769; C1892; J1644; J1650; J1815; J2250; J3010; J7030; Q9956; Q9967; 99285-25; C1771; G0378

== ENCOUNTER → 2019-11-26 | Day surgery (SDC) | payer MEDICARE ==
[~2019-11-26] MED LIST changes: +ALPR0.5T6 PO; +ALPR1TAB PO; +ARIP2TAB17 PO; -ARIP2TAB8 PO; +FLUO20CA19 PO; -FLUO20CA8 PO; +ICOS1CAP PO; +INSU100I13 SQ; +INSU100V31 SQ; +IV RINGERS,LACTATED 1000ML 1,000 ML IV ONE; +LIDOCAINE 2% PF 5 ML VIAL. ONE; +METF850T8 PO; +METO100T7 PO; +PANT40TA77 PO; +PROPOFOL 40 ML IV ONE
--- NOTE | 2019-11-26 14:02 | PDOC4 ---
PROCEDURE Procedure Colonoscopy with biopsy/EGD with biopsies Indications: NCCP/dyspepsia/screening. Meds per anesthesia Findings: SHAKA normal. 'Scope advanced to cecum. Mucosa normal. 4-5mm sessile polyp, mid-transverse, biopsied off. Exam otherwise normal. EGD- E--healing erosive disease. ?Loco's 39-40cm. Biopsies done. G--Striped prepyloric erythema, biopsied. D--Normal to second portion. Martine. well. IMP: Colon polyp GERD ?Loco's, short-segment. Antral erythema. REC: Await path Continue home meds and diet as before. OK to restart AC's. F/u with me in 2 weeks. EREN HANEY MD Nov 26, 2019 14:02
[2019-11-26 14:31] VITALS: BP 111/70
--- NOTE | 2019-11-29 16:06 | PATHOLOGY ---
[facility] Accession Number: [id number] . 01 Material submitted: . PART A: stomach - ANTRUM BX PART B: esophagus - DISTAL ESOPHAGUS BX. Modifiers: distal PART C: colon - TRANSVERSE COLON POLYP. Modifiers: transverse . 01 Clinical history: . Reflux . 02 Diagnosis: A. Gastric biopsies, antrum: - Chronic gastritis, mild. . B. Esophageal biopsies, distal esophagus: - Segments of esophagogastric and gastric mucosa showing chronic inflammation. . C. Colon biopsies, transverse colon polyp: - Tubular adenoma. . (JPM:alexandra; 11/29/2019) [facility] 11/29/2019 1131 Local . 02 Comment: Sections of the gastric antral biopsy show congestion and mild chronic inflammation. An immunoperoxidase stain for Helicobacter is negative for Helicobacter organisms. There is no evidence of malignancy. . Sections of the distal esophageal biopsy reveal two segments of esophagogastric mucosa and one segment of gastric mucosa showing moderate chronic inflammation. The squamous esophageal mucosa focally contains a few intraepithelial eosinophils consistent with reflux esophagitis. There is no specialized columnar epithelium diagnostic of Loco's change. . Sections of the transverse colon biopsy reveal a small tubular adenoma showing no high-grade dysplasia or evidence of malignancy. . (JPM:alexandra; 11/29/2019) . Special stain performed: Immunoperoxidase stain for Helicobacter on A1. . 02 Electronically signed: . Emery Oconnell MD, Pathologist NPI- [id number] . 01 Gross description: . A. Received in formalin labeled "ZhouJose, antrum BX," is a single segment of perez soft tissue measuring 0.6 cm in maximum dimension. The specimen is entirely submitted in cassette A1. . B. Received in formalin labeled "Zhou, Jose, distal esophagus BX, rule out Loco's," are 3 segments of perez soft tissue measuring 0.9 x 0.5 x 0.4 cm in aggregate dimensions and ranging from 0.2 to 0.5 cm in maximum dimension. The specimen is submitted entirely in cassette B1. . C. Received in formalin labeled "Jose Zhou, transverse colon polyp," is a single segment of perez soft tissue measuring 0.5 cm in maximum dimension. The specimen is entirely submitted in cassette C1. (TSD; 11/27/2019) TOB/TOB 11/29/2019 1126 Local . 02 Pathologist provided ICD-10: K29.50, K20.8, D12.3 . 02 CPT . 225483, 691710, 149884, [id number] Specimen Comment: A courtesy copy of this report has been sent to [phone], [phone] Specimen Comment: [id number] Specimen Comment: Report sent to / DR GARCIA Specimen Comment: A duplicate report has been generated due to demographic updates. Performed at: 01 [facility] [address] [facility] [address], [place] [id number] MD Anupam Laboy MD Phone: [phone] Performed at: 02 [facility] [address] [place], [place] [id number] MD Emery Oconnell MD Phone: [phone]
== END ==
LOC: ENDOS 12:24
PROVIDERS: ATTEND Internal Medicine Gastroenterology
DX: R19.4 Change in bowel habit (principal); K29.50 Unspecified chronic gastritis without bleeding; D12.3 Benign neoplasm of transverse colon; K21.0 Gastro-esophageal reflux disease with esophagitis; F41.9 Anxiety disorder, unspecified; F32.9 Major depressive disorder, single episode, unspecified; Z79.899 Other long term (current) drug therapy
CPT/HCPCS: 43239; 45380; 82962; J2001; J2704

== ENCOUNTER → 2020-09-04 | Outpatient (CLI) | payer MEDICARE ==
[2020-05-10 16:00] VITALS: BP 168/95
[~2020-09-04] MED LIST changes: -FLUO20CA19 PO; +FLUO20CA20 PO; -IV RINGERS,LACTATED 1000ML 1,000 ML IV ONE; +LABE200T4 PO; -LIDOCAINE 2% PF 5 ML VIAL. ONE; +MULT-445 PO; -MULT1TAB52 PO; -PROPOFOL 40 ML IV ONE
[2020-09-04 11:34] LABS: BASO % 1 % (0-3); EOS # 0.1 x10^3/uL (0.0-0.7); EOS % 1 % (0-3); HEMATOCRIT 47.2 % (39.0-53.0); HEMOGLOBIN 15.8 g/dL (13.0-17.5); LYMPH # 2.1 x10^3/uL (1.0-4.8); LYMPH % 27 % (24-48); MEAN CORPUSCULAR HEMOGLOBIN 28 pg (25-35); MEAN CORPUSCULAR HGB CONC 34 g/dL (31-37); MEAN CORPUSCULAR VOLUME 84 fL (79-100); MONO # 0.4 x10^3/uL (0.0-1.1); MONO % 5 % (0-9); NEUT % 66 % (31-73); PLATELET COUNT 258 x10^3/uL (140-400); RED BLOOD COUNT 5.64 x10^6/uL (4.30-5.70); RED CELL DISTRIBUTION WIDTH 15.4 % (11.5-14.5); WHITE BLOOD COUNT 7.7 x10^3/uL (4.0-11.0)
[2020-09-04 11:59] LABS: ALBUMIN 3.7 g/dL (3.4-5.0); ALBUMIN/GLOBULIN RATIO 0.9 (1.0-1.7); CREATININE 1.3 mg/dL (0.7-1.3); GFR 58.4; POTASSIUM 3.7 mmol/L (3.5-5.1); TOTAL BILIRUBIN 0.5 mg/dL (0.2-1.0); TOTAL PROTEIN 7.8 g/dL (6.4-8.2)
[2020-09-05 14:12] LABS: RNP ANTIBODY <0.2 AI (0.0-0.9); SMITH ANTIBODY <0.2 AI (0.0-0.9)
== END ==
LOC: SPEC 11:08
PROVIDERS: ATTEND Internal Medicine Hematology & Oncology
DX: R21 Rash and other nonspecific skin eruption (principal)
CPT/HCPCS: 36415; 80053; 83520; 84165; 85025; 86038; 86162; 86235; 86255; 86256; 86618; 86703; 86704; 86706; 87340

== ENCOUNTER → 2020-09-29 | Outpatient (CLI) | payer MEDICARE ==
[2020-05-10 16:00] VITALS: BP 168/95
[2020-09-30 13:17] LABS: ANTI-DS DNA <1 IU/mL (0-9); KAPPA FREE 30.9 mg/L (3.3-19.4); KAPPA LAMBDA RATIO 1.24 (0.26-1.65); LAMBDA FREE 24.9 mg/L (5.7-26.3); SSA ANTIBODY <0.2 AI (0.0-0.9); SSB ANTIBODY <0.2 AI (0.0-0.9)
[2020-09-30 18:09] LABS: ANA INTERP Negative (.)
[2020-10-01 14:20] LABS: C ANCA <1:20 titer (Neg:<1:20); P ANCA <1:20 titer (Neg:<1:20)
[2020-10-01 16:10] LABS: ALBUM 3.5 g/dL (2.9-4.4); ALPHA 1 0.2 g/dL (0.0-0.4); ALPHA 2 0.8 g/dL (0.4-1.0); BETA 1.3 g/dL (0.7-1.3); GAMMA 1.2 g/dL (0.4-1.8)
== END ==
LOC: ONCLAB 10:19
PROVIDERS: ATTEND Internal Medicine Hematology & Oncology
DX: R21 Rash and other nonspecific skin eruption (principal)
CPT/HCPCS: 36415; 83520; 84165; 86038; 86235; 86255; 86256

== ENCOUNTER 2021-04-23 21:15 | Emergency (ER) | payer MEDICARE ==
[~2021-04-23] VITALS: Ht 172.7 cm; Wt 115.5 kg
[~2021-04-23 21:15] MED LIST changes: +ISOS30TA68 PO; -LISI-338 PO; +LISI-517 PO; +TRAZ-123 PO; +VILA40TA PO
[2021-04-23] MEDS: ASPIRIN CHEWABLE 81 MG TABLET. PO ONE (22:00)
[2021-04-23 22:03] LABS: BASO # 0.1 x10^3/uL (0.0-0.2); BASO % 1 % (0-3); EOS # 0.3 x10^3/uL (0.0-0.7); EOS % 4 % (0-3); HEMATOCRIT 45.6 % (39.0-53.0); HEMOGLOBIN 15.2 g/dL (13.0-17.5); LYMPH # 2.9 x10^3/uL (1.0-4.8); LYMPH % 38 % (24-48); MEAN CORPUSCULAR HEMOGLOBIN 27 pg (25-35); MEAN CORPUSCULAR HGB CONC 34 g/dL (31-37); MEAN CORPUSCULAR VOLUME 81 fL (79-100); MONO # 0.5 x10^3/uL (0.0-1.1); MONO % 7 % (0-9); NEUT # 3.9 x10^3/uL (1.8-7.7); NEUT % 51 % (31-73); PLATELET COUNT 248 x10^3/uL (140-400); RED BLOOD COUNT 5.62 x10^6/uL (4.30-5.70); WHITE BLOOD COUNT 7.7 x10^3/uL (4.0-11.0)
[2021-04-23 22:13] LABS: CALCIUM 8.2 mg/dL (8.5-10.1); CREATININE 1.4 mg/dL (0.7-1.3); GFR 53.4; POTASSIUM 3.5 mmol/L (3.5-5.1)
[2021-04-23 22:19] LABS: ALBUMIN 3.1 g/dL (3.4-5.0); ALBUMIN/GLOBULIN RATIO 0.9 (1.0-1.7); MAGNESIUM 1.8 mg/dL (1.8-2.4); TOTAL BILIRUBIN 0.4 mg/dL (0.2-1.0); TOTAL PROTEIN 6.4 g/dL (6.4-8.2)
--- NOTE | 2021-04-23 22:33 | RAD ---
EXAM: XR CHEST 1V 04/23/2021 9:56 PM CLINICAL INDICATION: Chest pain COMPARISON: Chest radiograph 10/29/2020 TECHNIQUE: AP upright view of the chest FINDINGS: There are changes of median sternotomy. The heart is enlarged, unchanged. Lungs are hypoex panded. There are unchanged mild opacities at the left costophrenic sulcus, likely due to prominent p ericardial fat pad and atelectasis. The right lung is clear. No pleural effusion or pneumothorax. No acute osseous abnormality. IMPRESSION: No acute cardiopulmonary abnormality. Electronically signed by: Tea Rojo MD (04/23/2021 10:30 PM) [id number]
--- NOTE | 2021-04-24 00:13 | ED.ADGEN ---
Past Medical History Past Medical History: Diabetes-Type II, GERD, Heart Disease, MD, Pancreatitis, Other Additional Past Medical Histor: CABG x 6 Past Surgical History: Cholecystectomy, Coronary Bypass Surgery, Knee Repla cement Additional Past Surgical Histo: STENT PLACEMENT Smoking Status: Never Smoker Alcohol Use: None Drug Use: None General Adult EDM: Chief Complaint: CHEST PAIN HPI: HPI: Patient is a 50-year-old male with past medical history of coronary artery disease who presents to the emergency room after having an episode of lightheadedness and chest pain. Patient initially had some lightheadedness and his checked his blood pressure and found it was significantly elevated. He then developed some mild chest pain. He states that this did not feel similar to when he has had a heart attack in the past. He states that the chest pain was mild and did not last very long. He now feels tired and a little dizzy. He follows up with Dr. Wheeler. His last cath was a year ago. Pain felt like a dull ache or a mild pressure. Review of Systems: Review of Systems: Complete ROS is negative unless otherwise documented in HPI Current Medications: Current Medications Medications (Trade) Dose Ordered Sig/Omar Start Time Stop Time Status Last Admin Dose Admin Aspirin (Aspirin Chewable) 324 mg 1X ONCE 04/23/21 21:45 04/23/21 21:46 DC 04/23/21 22:00 324 MG Allergies: Allergies: Allergies Coded Allergies Type Severity Reaction Last Updated Verified No Known Drug Allergies 11/26/19 No Physical Exam: PE: General: Awake, alert, NAD. Well Nourished, well hydrated. Cooperative HEENT: Atraumatic, EOMI, PERRL, airway patent, moist oral mucosa Neck: Supple, trachea midline Respiratory: CTA bilaterally, normal effort, no wheezing/crackles CV: RRR, no murmur, cap refill <2 GI: Soft, nondistended, nontender, no masses MSK: No obvious deformities Skin: Warm, dry, intact Neuro: A&O x3, speech NL, sensory and motor grossly intact, no focal deficits Psych: Normal affect, normal mood, not suicidal or homicidal Current Patient Data: Labs: Laboratory Tests Test 04/23/21 21:25 04/23/21 23:40 White Blood Count 7.7 x10^3/uL (4.0-11.0) Red Blood Count 5.62 x10^6/uL (4.30-5.70) Hemoglobin 15.2 g/dL (13.0-17.5) Hematocrit 45.6 % (39.0-53.0) Mean Corpuscular Volume 81 fL (79-100) Mean Corpuscular Hemoglobin 27 pg (25-35) Mean Corpuscular Hemoglobin Concent 34 g/dL (31-37) Red Cell Distribution Width 17.0 % (11.5-14.5) H Platelet Count 248 x10^3/uL (140-400) Neutrophils (%) (Auto) 51 % (31-73) Lymphocytes (%) (Auto) 38 % (24-48) Monocytes (%) (Auto) 7 % (0-9) Eosinophils (%) (Auto) 4 % (0-3) H Basophils (%) (Auto) 1 % (0-3) Neutrophils # (Auto) 3.9 x10^3/uL (1.8-7.7) Lymphocytes # (Auto) 2.9 x10^3/uL (1.0-4.8) Monocytes # (Auto) 0.5 x10^3/uL (0.0-1.1) Eosinophils # (Auto) 0.3 x10^3/uL (0.0-0.7) Basophils # (Auto) 0.1 x10^3/uL (0.0-0.2) Sodium Level 141 mmol/L (136-145) Potassium Level 3.5 mmol/L (3.5-5.1) Chloride Level 102 mmol/L (98-107) Carbon Dioxide Level 30 mmol/L (21-32) Anion Gap 9 (6-14) Blood Urea Nitrogen 15 mg/dL (8-26) Creatinine 1.4 mg/dL (0.7-1.3) H Estimated GFR (Cockcroft-Gault) 53.4 BUN/Creatinine Ratio 11 (6-20) Glucose Level 267 mg/dL (70-99) H Calcium Level 8.2 mg/dL (8.5-10.1) L Magnesium Level 1.8 mg/dL (1.8-2.4) Total Bilirubin 0.4 mg/dL (0.2-1.0) Aspartate Amino Transferase (AST) 12 U/L (15-37) L Alanine Aminotransferase (ALT) 23 U/L (16-63) Alkaline Phosphatase 86 U/L (46-116) Troponin I Quantitative < 0.017 ng/mL (0.000-0.055) < 0.017 ng/mL (0.000-0.055) HP-Eac-U-Type Natriuretic Peptide 63 pg/mL (0-124) Total Protein 6.4 g/dL (6.4-8.2) Albumin 3.1 g/dL (3.4-5.0) L Albumin/Globulin Ratio 0.9 (1.0-1.7) L Laboratory Tests 04/23/21 21:25 Laboratory Tests 04/23/21 21:25 Vital Signs: Vital Signs Date Time Temp Pulse Resp B/P (MAP) Pulse Ox O2 Delivery O2 Flow Rate FiO2 04/24/21 00:15 76 15 145/87 (106) 92 Room Air 04/23/21 21:15 98.0 98.0 EKG: EKG: [] Heart Score: C/O Chest Pain: Yes HEART Score for Chest Pain: HEART Score for Chest Pain Response (Comments) Value History Slighlty/Non-Suspicious 0 ECG Normal 0 Age >45 - < 65 1 Risk Factors >3 Risk Factors or Hx CAD 2 Troponin < Normal Limit 0 Total 3 Risk Factors: Risk Factors: DM, Current or recent (<one month) smoker, HTN, HLP, family history of CAD, obesity. Risk Scores: Score 0 - 3: 2.5% MACE over next 6 weeks - Discharge Home Score 4 - 6: 20.3% MACE over next 6 weeks - Admit for Clinical Observation Score 7 - 10: 72.7% MACE over next 6 weeks - Early Invasive Strategies Radiology/Procedures: Radiology/Procedures: [] Course & Med Decision Making: Course & Med Decision Making Pertinent Labs and Imaging studies reviewed. (See chart for details) Patient is a 50 year-old male who presents to the Emergency Room complaining of chest pain and lightheadedness that have now resolved. History is significant for coronary artery disease. At this time, given patient's risk factors and story there is concern for possible cardiac pathology. EKG was ordered and shows normal sinus rhythm. At this time there is no signs of STEMI, pericarditis, or unstable arrthymia on EKG. Patient has received aspirin today. CBC, BMP, troponin, CXR were ordered to evaluate for causes of chest pain including ACS, anemia, electrolyte abnormalities that can lead to arrhythmias, PTX, pneumonia, pneumomediastinum. Patient does not have any abdominal tenderness that would suggest pancreaititis or cholecystitis and does not need an abdominal work up at this time. Patient does have a history of coronary artery disease placing him at a higher risk. Troponin and repeat troponin are both negative. EKG does not show signs of a STEMI at this time. 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 At this time patient is feeling completely back to normal and would like to call Dr. Wheeler in the morning. He will return to the emergency room if he has any further chest pain. Patient's test results and vitals while in the ED were fully reviewed and discussed with the patient. Patient is stable and at this time does not need admission to the hospital. We have discussed strict return precautions and the importance of following up with their Primary Care Physician. Patient stated understanding and was given an opportunity to ask any questions. Patient is in agreement with plan. Jill Disclaimer: Jill Disclaimer: This electronic medical record was generated, in whole or in part, using a voice recognition dictation system. Departure Departure Impression: Primary Impression: Chest pain Disposition: HOME / SELF CARE / HOMELESS Condition: STABLE Referrals: JUSTINO GARCIA MD (PCP) Patient Instructions: Chest Pain (Nonspecific) MIGUEL STODDARD MD April 24, 2021 00:13
[2021-04-24 00:15] VITALS: BP 145/87
--- NOTE | 2021-04-24 04:30 | EKG ---
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
== END 2021-04-24 00:20 | disposition home or self-care (01) ==
LOC: ER 21:15
DX: R07.89 Other chest pain (principal); R42 Dizziness and giddiness; E11.9 Type 2 diabetes mellitus without complications; K21.9 Gastro-esophageal reflux disease without esophagitis; I25.810 Atherosclerosis of coronary artery bypass graft(s) without angina pectoris; I25.2 Old myocardial infarction
CPT/HCPCS: 36415; 71045; 80053; 83735; 83880; 84484; 85025; 93005; 99285

== ENCOUNTER 2021-07-28 06:59 | Outpatient (CLI) | payer MEDICARE ==
[~2021-07-28] VITALS: Ht 170.2 cm; Wt 114.5 kg
[2021-07-28] VITALS (13 sets, daily range): BP systolic 140–170; BP diastolic 79–102
[2021-07-28 07:28] LABS: HEMATOCRIT 42.1 % (39.0-53.0); HEMOGLOBIN 14.2 g/dL (13.0-17.5); RED BLOOD COUNT 5.11 x10^6/uL (4.30-5.70); RED CELL DISTRIBUTION WIDTH 16.6 % (11.5-14.5); WHITE BLOOD COUNT 8.3 x10^3/uL (4.0-11.0)
[2021-07-28 07:38] LABS: CALCIUM 8.6 mg/dL (8.5-10.1); CREATININE 1.7 mg/dL (0.7-1.3); GFR 42.7; POTASSIUM 4.1 mmol/L (3.5-5.1); PROTHROMBIN TIME PATIENT 11.7 SEC (11.7-14.0)
[2021-07-28] MEDS ORDERED: HEPARIN for ARTERIAL LINE 1,500 ML ONE (07:40)
[2021-07-28] MEDS ORDERED: LIDOCAINE 1% Multi-Dose 20 ML VIAL. ONE ×2 (07:40→09:06)
[2021-07-28] MEDS ORDERED: IODIXANOL 320 MG/ML 100 ML VIAL. ONE (07:40)
[2021-07-28] MEDS ORDERED: LAMO150T4 PO (08:00)
[2021-07-28] MEDS ORDERED: INSU100I51 SQ (08:00)
[2021-07-28] MEDS ORDERED: GABA600T7 PO (08:02)
[2021-07-28] MEDS ORDERED: fentaNYL PF VIAL 100 MCG/2 ML VIAL ONE (08:31)
[2021-07-28] MEDS ORDERED: MIDAZOLAM HCL/PF 2 MG/2 ML VIAL. ONE (08:31)
[2021-07-28] MEDS ORDERED: NITROGLYCERIN 200 MCG/2 ML SYRINGE FOR CATH/VASC LAB. ONE ×2 (09:28→09:39)
[2021-07-28] MEDS ORDERED: NITROPRUSSIDE SODIUM 50 MG/2 ML VIAL IV ONE (09:34)
[2021-07-28] MEDS ORDERED: HEPARIN for IV BOLUS 10,000 UNIT/10 ML VIAL. ONE (09:37)
[2021-07-28] MEDS ORDERED: fentaNYL PF VIAL 100 MCG/2 ML VIAL IV ONE (09:45)
[2021-07-28] MEDS ORDERED: NITROPRUSSIDE 100MCG/ML SYRINGE. INT CORON ONE (09:45)
[2021-07-28] MEDS ORDERED: MIDAZOLAM HCL/PF 2 MG/2 ML VIAL. IV ONE (09:45)
[2021-07-28] MEDS ORDERED: LIDOCAINE 1% Multi-Dose 20 ML VIAL. INJ ONE (09:45)
[2021-07-28] MEDS ORDERED: NITROGLYCERIN 200 MCG/2 ML SYRINGE FOR CATH/VASC LAB. ICAR ONE (09:45)
[2021-07-28] MEDS ORDERED: CLOPIDOGREL BISULFATE 75 MG TABLET PO ONE (09:45)
[2021-07-28] MEDS ORDERED: HEPARIN for IV BOLUS 10,000 UNIT/10 ML VIAL. IV ONE (09:45)
[2021-07-28] MEDS ORDERED: IODIXANOL 320 MG/ML 100 ML VIAL. IART ONE (09:45)
[2021-07-28] MEDS ORDERED: CLOPIDOGREL BISULFATE 75 MG TABLET ONE (10:03)
[2021-07-28] MEDS ORDERED: ONDANSETRON PF 4 MG/2 ML VIAL. ONE (10:52)
--- NOTE | 2021-07-28 11:04 | NUR ---
Pt complaining of nausea. Blood glucose 110. Zofran IV given per Dr. Wheeler.
--- NOTE | 2021-07-28 11:05 | CARD ---
MR#: [id number] Date of Study: 07/28/2021 Ordering Physician: MICHAEL WHEELER, Referring Physician: MICHAEL WHEELER, Tech: RT Margarita(R) APPROVED REPORT Technologist: RT Margarita(R) Nurse: Amanda Scott RN Procedure(s) performed: fl time: 8.3 mins dose: 133 gycm2 contrast: 90 ml moderate sedation: 83 MINS Right and left heart catheterization, coronary angiography, bypass angiography PCI of the SVG to LCx. [facility] Clinical Frailty Scale [facility] Clinical Frailty Scale: Mildly Frail Heart Failure Heart Failure: Yes If Yes, Newly Diagnosed: No If Yes, HF Type: Diastolic Systolic If Yes, NYHA Class: Class II CASE TECHNIQUE IV conscious sedation was used throughout procedure with appropriate monitoring and was performed in the presence of a registered nurse who was an independent trained observer other than the physician p erforming the procedure. During this case, Fluoroscopy and low osmolar contrast were used for imaging . Specimen(s) Removed: N/A Estimated Blood loss: 20 cc's. 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 PROCEDURE DETAILS: The patient was brought electively to the cardiac catheterization lab. A timeout was performed confi rming the patient's name, date of , procedure, and site of procedure. All necessary personnel w ere wearing the appropriate protective equipment and radiation monitor devices. After explaining the risks and benefits of the procedure and alternatives, informed consent was obtained. (See nursing no joceline for medications administered). The right groin was sterilely prepped and draped in the usual fas hion. The right groin was infiltrated with 20 mL of 2% lidocaine for subcutaneous anesthesia. A 6 F sheath was inserted into the right femoral artery without difficulty via the modified seldinger techn ique with an 18G needle and a J-tipped guidewire. Next, an 8Fr sheath was inserted in the right commo n femoral vein in similar fashion without difficulty. A PA catheter was then advanced through the right heart chambers, pressures and saturations were obta ined. Subsequently, right and left coronary angiography was performed using standard JR4 and JL4 diag nostic catheters. Left ventricular end diastolic pressure was obtained with a JR4 catheter and pullb ack was performed. Bypass angiography was performed with a JR4, KAYLEY and MPA catheters. HEMODYNAMICS: LVEDP 25 mm Hg AO: 170/79 *No gradient on LV to aortic pullback. PCWP: 25 mm Hg PA: 46/25/34 RV: 50/7/17 RA: 13 mm Hg Jorge: 7.9 L/min Chcf: 3.5 PA saturation: 75% FA saturation: 94% LEFT VENTRICULOGRAM: Deferred due to CKD. CORONARY ANGIOGRAPHY: LM is a large caliber vessel with normal angiographic appearance. LAD is a moderate caliber vessel with proximal 90% stenosis. The distal vessel fills via a patent CUEVAS A and has mild diffuse disease. Ramus is a small caliber vessel with a proximal 100% occlusion. The distal vessel is seen to fill via a patent radial graft. LCX is a moderate caliber non-dominant vessel with a proximal 100% occlusion. OM1 has a proximal subtotal occlusion. OM2 has a proximal 100% occlusion. The distal vessel is seen to fill via a patent vein graft and has no significant disease. RCA is a moderate caliber dominant vessel and is known occluded and not injected on this study. The d istal RCA/RPDA are seen to fill via a patent vein graft. BYPASS ANGIOGRAPHY: SULLIVAN to LAD is widely patent without anastomotic stenosis. SVG to RCA is widely patent without anastomotic stenosis. Radial graft to Ramus is widely patent without anastomotic stenosis. SVG to OM2 is patent with a proximal 80% stenosis, the distal anastomosis has patent overlapping sten ts SVG to OM1 is known occluded. INTERVENTIONAL TECHNIQUE: PCI of SVG to OM2. Heparin was used for anticoagulation. Through a 6Fr JR 4 guide catheter, a 0.014'' Prowater wire was advanced to the distal OM2. The graft stenosis was then direct stented with a Resolute 4.0/12 mm ROBERTO at 16 chalino. Intracoronary NTG and nipride were given. Final angiography demonstrated DILSHAD 3 flow in th e vessel w/o guide or wire related complications. The patient received 300mg Plavix at [facility]. At case completion, the groin sheaths were removed. Hemostasis was achieved with an angioseal device in the RCFA and manual pressure in the RCFV. No acute complications noted. DILSHAD Flow DILSHAD Flow (Pre-Intervention): DILSHAD-3 DILSHAD Flow (Post-Intervention): DILSHAD-3 Conclusion 1. Elevated biventricular filling pressures. 2. Secondary pulmonary HTN 3. Normal cardiac output. 4. Severe 3V CAD 5. 4/5 grafts patent. 6. Successful PCI of the SVG to OM2 with a Resolute 4.0/12 mm ROBERTO in the proximal body of the graft. Recommendations Resume Xarelto 2.5mg p.o bid Plavix 75mg daily Continue high dose statin therapy Cardiac rehabilitation. Signed by : Michael Wheeler, Electronically Approved : 07/28/2021 11:05:07
[2021-07-28] MEDS ORDERED: NITROGLYCERIN SUBLINGUAL 0.4 MG BOTTLE OF 25. SL PRN (11:15)
[2021-07-28] MEDS ORDERED: ATROPINE 0.5 MG/5 ML DISP.SYRINGE. IV PRN (11:15)
[2021-07-28] MEDS ORDERED: fentaNYL PF VIAL 100 MCG/2 ML VIAL IV PRN (11:15)
[2021-07-28] MEDS ORDERED: ACETAMINOPHEN 325 MG TABLET. PO PRN (11:15)
[2021-07-28] MEDS ORDERED: 0.9 % SODIUM CHLORIDE 10 ML DISP.SYRIN. IV PRN (11:15)
[2021-07-28] MEDS ORDERED: LIDOCAINE 2% 100 MG/5 ML SYRINGE. IV PRN (11:15)
[2021-07-28] MEDS ORDERED: ONDANSETRON PF 4 MG/2 ML VIAL. IM ONE (11:15)
[2021-07-28] MEDS ORDERED: AMIODARONE 150 MG in IV DEXTROSE 5% 100ML 100 ML IV PRN (11:15)
--- NOTE | 2021-07-28 13:43 | NUR ---
shadowing noted on groin dressing. V pad applied. No bleeding noted. No hematoma.
--- NOTE | 2021-07-28 15:13 | NUR ---
Discharge instructions reviewed with patient and family. PIV dc'd. Pt ambulated and tolerated. Pt has been referred to cardiac rehab. Pt home in private vehicle with family
[2021-07-29] MEDS ORDERED: CLOPIDOGREL BISULFATE 75 MG TABLET PO SCH (08:00)
== END 2021-07-28 15:16 | disposition home or self-care (01) ==
LOC: CCL 06:59
PROVIDERS: ATTEND Internal Medicine Cardiovascular Disease
DX: I25.700 Atherosclerosis of coronary artery bypass graft(s), unspecified, with unstable angina pectoris (principal); I11.0 Hypertensive heart disease with heart failure; I50.9 Heart failure, unspecified; I25.2 Old myocardial infarction; I42.9 Cardiomyopathy, unspecified; K21.9 Gastro-esophageal reflux disease without esophagitis; F41.9 Anxiety disorder, unspecified; F32.9 Major depressive disorder, single episode, unspecified; E78.00 Pure hypercholesterolemia, unspecified; E11.9 Type 2 diabetes mellitus without complications; E66.9 Obesity, unspecified; Z90.49 Acquired absence of other specified parts of digestive tract; Z95.5 Presence of coronary angioplasty implant and graft; Z95.1 Presence of aortocoronary bypass graft; Z79.4 Long term (current) use of insulin; Z79.899 Other long term (current) drug therapy; Z98.890 Other specified postprocedural states
CPT/HCPCS: 36415; 80048; 82962; 85027; 85347; 85610; 93461; 99152; 99153; C1760; C1769; C1773; C1874; C1887; C1894; C9604; J1644; J2250; J3010; J3490; Q9967; 92938; G0269

== ENCOUNTER → 2022-02-24 | Outpatient (CLI) | payer MEDICARE ==
[2021-07-28 14:15] VITALS: BP 154/85
[~2022-02-24] MED LIST changes: +CYCL10TA19 PO; -CYCL10TA2 PO; -DULO60CA6 PO; +DULO60CA7 PO; -FLUO20CA20 PO; +FLUO20CA22 PO; +GABA600T7 PO; +INSU100I51 SQ; +LAMO150T4 PO; -LISI-517 PO; +LISI5TAB15 PO; +PIOG1TAB PO; -PIOG1TAB7 PO
[2022-02-24 08:49] LABS: CALCIUM 9.5 mg/dL (8.5-10.1); CREATININE 1.8 mg/dL (0.7-1.3); GFR 39.8; POTASSIUM 4.2 mmol/L (3.5-5.1)
== END ==
LOC: LAB 08:11
PROVIDERS: ATTEND Internal Medicine Cardiovascular Disease
DX: N18.9 Chronic kidney disease, unspecified (principal)
CPT/HCPCS: 36415; 80048; 83880

== ENCOUNTER → 2022-03-18 | Outpatient (CLI) | payer MEDICARE ==
[2021-07-28 14:15] VITALS: BP 154/85
--- NOTE | 2022-03-18 13:54 | KCIC ---
EXAM: MRI of the Brain CLINICAL HISTORY: Reason: BALANCE PROBLEMS, ESSENTIAL TREMORS, MILD COGNITIVE DELAY / Spl. Instructio ns: / History: Shaking, tremors and balance problems in rcent months. ST memory loss. COMPARISON: None available. TECHNIQUE: Multiplanar multisequence imaging of the brain is performed without contrast. FINDINGS: There is no evidence of intracranial hemorrhage, mass or edema. There is no signal abnormality on the T2 and Flair images. There is no restricted diffusion to sugges t acute ischemia. The ventricles and basilar cisterns are normal in size and configuration for the patients age. There is no evidence of mass effect or shift of the midline structures. Posterior fossa structures including the cerebellum and brainstem are unremarkable. Limited imaging of the orbits demonstrates no orbital abnormality. There are normal flow voids in the arteries at the level of the [place] of [place]. There is mild symmetrical bilateral cortical atrophy involving the frontal lobes, with relative prese rvation of the parietal and temporal lobes. There is edema of the right inferior turbinate, and there is right middle turbinate alannah bullosa. V isualized paranasal sinuses are clear however. IMPRESSION: 1. No acute intracranial abnormality. 2. Bilateral mild frontal cortical atrophy with relative preservation of the temporal parietal lobes. This is nonspecific and can be normal senescent change, but can also be seen with frontotemporal troy earance of dementia. Electronically signed by: Pj Le MD (03/18/2022 1:52 PM) [id number]
== END ==
LOC: KCIC MRI 10:46
PROVIDERS: ATTEND Nurse Practitioner Family
DX: G31.89 Other specified degenerative diseases of nervous system (principal); R60.0 Localized edema; R26.89 Other abnormalities of gait and mobility; G25.0 Essential tremor; G31.84 Mild cognitive impairment of uncertain or unknown etiology
CPT/HCPCS: 70551